=== PATIENT | female | born 1965 | race Caucasian/White ===

== ENCOUNTER → 2016-06-04 | Outpatient (CLI) | payer SELFPAY ==
[~2016-06-04] MED LIST: HYDR-3534 PO; LEVO.1 PO; ZANA4CAP PO
--- NOTE | 2016-06-04 17:06 | RADRPT ---
EXAM DATE/TIME: 06/04/2016 16:27 [place] COMPARISON: No previous studies available for comparison. INDICATIONS : Rotator cuff tear. Right shoulder pain after fall about one month ago. MEDICAL HISTORY : None. SURGICAL HISTORY : Rotator cuff, left. Breast implants. ENCOUNTER: Initial ACUITY: 1 month PAIN SCORE: 3/10 LOCATION: Right shoulder. TECHNIQUE: Multiplanar, multisequence MRI examination was performed without contrast. FINDINGS: ROTATOR CUFF: The anterior supraspinatus tendon is torn . Distally it occupies at least 80% of the cross-sectional AP dimension of the supraspinatus tendon. The infraspinatus, subscapularis, and teres minor tendons are intact. LABRUM: Labrum is within normal limits. MARROW/CARTILAGE: There is a bony edema and impingement changes on the greater tuberosity. Glenohumeral joint articula r cartilage is within normal limits. OTHER: Acromioclavicular joint is within normal limits. Proximal biceps tendon is intact. CONCLUSION: Partial tear the anterior three quarters of the supraspinatus tendon with retraction of the tendon to the level of the glenohumeral joint. Muscle fibers are preserved. Some impingement change of the gre ater tuberosity Ángel Gallegos MD on June 04, 2016 at 17:03 Board Certified Radiologist. This report was verified electronically.
== END ==
LOC: HRAD 14:25
PROVIDERS: ATTEND Orthopaedic Surgery Sports Medicine
DX: M25.511 Pain in right shoulder (principal)
CPT/HCPCS: 73221

== ENCOUNTER → 2016-07-08 | Outpatient (CLI) | payer OTHER ==
[~2016-07-08] VITALS: Ht 170.2 cm; Wt 80.4 kg
[~2016-07-08] MED LIST changes: +INSULIN HUMAN REGULAR 1,000 UNITS/10 ML VIAL SQ PRN; +LACTATED RINGER'S 1000 ML IV SCH; +METOPROLOL TARTRATE 25 MG TAB PO PRN; +PROPOFOL 200 MG/20 ML AMP IV ONE; +SODIUM CHLORID 0.9% 500 ML IV SCH
[2016-07-08 09:17] VITALS: BP 143/79; PULSE 74; RESP 20; TEMP 98.4; O2SAT 100
[2016-07-08 11:27] VITALS: TEMP 97
[2016-07-08 11:50] VITALS: BP 137/92; PULSE 72; RESP 16; O2SAT 98
--- NOTE | 2016-07-08 13:06 | MR ---
cc: YANELIS BOB MD, SUNIL P. M.D. DATE: 07/08/2016 DATE OF : 1965 TYPE OF PROCEDURE Total colonoscopy with ileoscopy and biopsy. INDICATION FOR PROCEDURE The patient is a pleasant 51-year-old white female who comes today for screening colonoscopy. She also has a family history of colon polyps in her father. This procedure is being done to check for colon cancer and colon polyps. ENDOSCOPIST Sachin Nobles MD [facility] GI personnel. ANESTHESIA Diprivan per FAMILY PROGRAM SPECIALIST. INSTRUMENT/SCOPE Pentax video Olympus adult colonoscope. TYPE OF PREP Split MoviPrep. The preparation was fair. Copious lavage was used to break up liquid and solid stool. PHYSICAL EXAMINATION VITAL SIGNS: Stable. She is afebrile. LUNGS: Clear. HEART: Regular rate and rhythm. No murmurs. ABDOMEN: Soft, nontender. NEUROLOGIC: She is alert and oriented x3. SKIN: Warm and dry. EXTENT OF EXAM Terminal ileum. CONTINUOUS MONITORING The patient had routine blood pressure monitoring, pulse oximeter/oxygen, and cardiac monitoring were continued throughout the procedure. INFORMED CONSENT Obtained with full verbal understanding, the indication for procedure (see above), risks and complications (bleeding, perforation, infection, arrhythmias, small possibility of , etc.), benefits (we can potentially see the entire colon, remove lesions, cauterized lesions, biopsy lesions, or inject lesions, etc.), alternatives (BE, flex-sig, surgery, etc.), limitations (we may not see everything secondary to prep and anatomy in addition, the patient understands the concept of a flat adenoma which is usually not seen on a colonoscopy. In other words, the patient understands that most colon cancers occur from colon polyps, however, a handful of colon cancers occur without an apparent colon polyp and occur from a flat adenoma. So, you can have a normal colonoscopy and develop a colon cancer years after the index normal colonoscopy. The patient also understands the inherent miss rate for polyps and a malignancy). The patient also understands the fact that I may not be able to complete the exam in its entirety. All questions were answered and all parties agreed to the procedure. DESCRIPTION OF PROCEDURE With the patient in the left lateral decubitus position a rectal exam was done and no significant pathology was felt. The above-mentioned colonoscope was inserted and passed through a redundant spastic sigmoid colon, descending colon, splenic flexure, transverse colon, into the hepatic flexure. Here there was paradoxical motion noted but I was able to push through this area to the ascending colon into the cecum with relative ease. The terminal ileum was visualized and unremarkable. The preparation was fair. There was some liquid and solid stool seen throughout which is washed and lavaged. Within the limitations there were no masses, AVMs, diverticula, or any signs of any abnormalities. In the splenic flexure there was a 3 mm sessile polyp. It was cold biopsied and removed. Retroflexion was accomplished in the rectum, internal hemorrhoids were noted, small and not bleeding. The withdrawal time was 17 minutes. SPECIMENS Splenic flexure polyp. TOLERANCE OF PROCEDURE The scope was totally withdrawn and the patient tolerated the procedure quite well. No immediate complications. Lungs, heart, abdomen, vital signs and the rest of the physical exam was unchanged post procedure. The patient was transported in a stable state to the recovery area. IMPRESSION 1. Splenic flexure polyp biopsy removed. 2. Internal hemorrhoids. 3. Family history of colon polyps - her father. 4. Await pathology. RECOMMENDATIONS 1. Return visit in 1-2 months. 2. Patient to call the office for biopsy results in 7-10 business days. 3. Post-procedure protocol to be followed. 4. The patient will be discharged when post-anesthesia protocol has been met. 5. She will need repeat colonoscopy again in three years. 6. Yearly hemoccult testing by her primary care doctor. 7. Resume home medications and diet. Sachin Nobles MD SP/BT /11:33 AM /12:34 PM
--- NOTE | 2016-07-08 15:11 | EKG ---
Date Performed: 07/08/2016 Time Performed: 09:38:54 PTAGE: 51 years EKG: Sinus rhythm WITH SHORT TX INTERVAL BORDERLINE ECG Compared to prior tracing no significant change PREVIOUS TRACING : 12/27/2000 09.42 DOCTOR: Cj Meza Interpretating Date/Time 07/08/2016 15:09:25
== END ==
LOC: HEND 08:28
PROVIDERS: ATTEND Internal Medicine Gastroenterology
DX: Z12.11 Encounter for screening for malignant neoplasm of colon (principal); Z80.0 Family history of malignant neoplasm of digestive organs; D12.3 Benign neoplasm of transverse colon; K64.8 Other hemorrhoids; R94.31 Abnormal electrocardiogram [ECG] [EKG]
CPT/HCPCS: 88305; 93005

== ENCOUNTER → 2016-08-20 | Day surgery (SDC) | payer OTHER ==
[~2016-08-20] MED LIST changes: +BACITRACIN IM FOR SOLN 50,000 UNIT VIAL ONE; +BUPIVACAINE HCL PF 0.75% 30 ML VIAL ONE; +BUPIVACAINE/EPINEPHRINE 0.25% PF 10 ML VIAL ONE; -INSULIN HUMAN REGULAR 1,000 UNITS/10 ML VIAL SQ PRN; +KETOROLAC TROMETHAMINE 30 MG/ML (IVP) VIAL IV PUSH ONE; +LACTATED RINGER'S 1000 ML INJ 1,000 ML ONE; -LACTATED RINGER'S 1000 ML IV SCH; +LIDOCAINE 1.5%/EPINEPHrine 1:200,000 PF SOLN 30 ML AMP ONE; -METOPROLOL TARTRATE 25 MG TAB PO PRN; +MIDAZOLAM HCL 5 MG/ML VIAL (1 ML) ONE; +ONDANSETRON HCL 4 MG/2 ML VIAL IV PUSH ONE; -SODIUM CHLORID 0.9% 500 ML IV SCH; +SODIUM CHLORIDE 0.9% INJ 10 ML ONE; +ceFAZolin INJ 1,000 MG VIAL ONE; +oxyCODONE/ACETAMINOPHEN 5 MG/325 MG TAB ONE
--- NOTE | 2016-08-20 12:01 | TN ---
cc: PEDRO GOVEA M.D. DATE OF SURGERY: 08/20/2016 PREOPERATIVE DIAGNOSIS Right shoulder rotator cuff tear. Right shoulder AC joint arthritis. POSTOPERATIVE DIAGNOSIS Right shoulder large three tendon retracted rotator cuff tear. Right shoulder AC joint arthritis with subclavicular impingement. Right shoulder intra-articular biceps tendon rupture. PROCEDURE PERFORMED Open right shoulder rotator cuff repair including acromioplasty. Right shoulder partial distal clavicle excision; 1 cm. Right shoulder excision of ruptured biceps tendon. SURGEON Jeferson ANESTHESIA: Anesthesia was general via laryngeal mask augmented by interscalene block and local infiltration. ESTIMATED BLOOD LOSS: Blood loss was minimal. FLUIDS: Fluid replacement was 800 cc of crystalloid. DRAINS: No drains were utilized. COMPLICATIONS: There were no intraoperative complications. IMPLANTS: Implants consisted of two Arthrex 5.5 mm bio corkscrew anchors with four #2 fiber wires on each of them and then two Arthrex 4.5 mm bio push locks and then one single #2 FiberWire suture. INDICATIONS FOR PROCEDURE Mrs. Jacobs is a 51-year-old woman who has a known right shoulder rotator cuff tear that has been treated conservatively for extended period of time and the is progressive becoming more and more painful. She has had multiple injections by other physicians with short-term relief and she is ready at this point in time to move forward with surgical management. She has a history of a previous left shoulder rotator cuff repair done [address] Martinez and is familiar with the procedure. Due to reasonable motion, she has been offered ongoing conservative management but based on her persistent pain and functional limitations she is quite eager to proceed. Preoperatively she had regained the majority of her range of motion but was having chronic intolerable, loss of motion pain and strength issues. DESCRIPTION OF PROCEDURE After the patient was identified in the holding area she correctly marked her right shoulder and I initialed it as well. She had been given an interscalene block by Dr. Ramos in the holding area and was also given 1 gram of intravenous Ancef. She was then taken back into the operating suite where she was placed under general laryngeal mask anesthetic and then was placed into the beach-chair position. Care was taken to pad all bony prominences at this point in time her right shoulder was prepped with alcohol and hibiclens and draped free in the normal standard fashion including the use of an impervious stockinette from the hand all the way up to the mid humerus level. A brief time out was held confirming the correct site and procedure. All were in agreement and the case was begun. At this time the shoulder was then taken through a range of motion. It was full without any obvious significant crepitus or instability. At this time a 5-cm incision was made directly over the acromioclavicular joint subcutaneous tissues divided and hemostasis was achieved with electrocautery. The AC joint was very palpable due to bony prominences and I went and sub periosteally dissected medially and laterally raising full thickness periosteal flaps over the to the anterolateral edge of the acromion and over to approximately 1.5 cm of the clavicle. There was clear evidence of quite large osteophytes at the AC joint with complete loss of the joint space. I went ahead and carried the dissection further anteriorly and the deltoid was spread in line with its fibers over the anterolateral edge acromion for approximately 1 cm as soon as I got to the deep deltoid fascia a large navarro of joint fluid came through consistent with a full-thickness tear. I went ahead and began to perform a subacromial bursectomy and immediately noted a larger full-thickness rotator cuff tear that had been appreciated on the MRI from May 2016. There was what appeared to be a full-thickness retracted tear involving the upper half of the subscapularis, all of the supraspinatus and all of the infraspinatus. This was clearly more extensive then her MRI findings. I still felt as though the repair was feasible based upon the quality of the tissue and good bone that was present. A generous acromioplasty was performed with the oscillating saw and this thoroughly decompressed the subacromial space. The distal 1 cm of clavicle was also excised to eliminate the AC joint arthritis but also to eliminate the large osteophyte impinging on the subclavicular space subacromial bursectomy was now performed and was able to mobilize the rotator cuff tear quite well. I felt that it would was truly a repairable lesion. It was clearly worse in the MRI had suggested but the tissue flaps were fairly thick and fairly mobile as I was explored the glenohumeral joint itself. I release adhesions between the capsule and the cuff and began to apply tension to the cuff to stretch it out. There was a complete biceps tendon rupture with approximately 1.5 cm of the tendon remaining in the joint and there was no evidence of any distal stump appreciated anywhere as I began to palpate down the upper anterior portion of the arm. I did not feel any obvious prominence that would be consistent with the distal stump and clinically she did not show evidence of a large rupture. I went ahead and excise the large stump of biceps tendon off of the supraglenoid tubercle taking care not to produce a slap lesion as a result of this there was no evidence of any definite labral tear or any other evidence of labral instability. The glenohumeral joint showed relatively minimal evidence of any degenerative arthritis as well. I thoroughly irrigated out the glenohumeral joint at this point in time and then went ahead and made a trough at the greater tuberosity in order to implant two 5.5 mm biocorkscrew anchors for cuff repair. I went ahead and got a bone trough down to bleeding bone as a result of the dissection. At this time I went ahead and passed all of the #2 FiberWire sutures through the cuff itself mobilizing it well getting good purchase, and was able to perform a medial row repair getting good reapproximation of the majority of the tendon down to the footprint on the tuberosity. Once this was performed I went ahead and did a [id number]-li-rwre reinforcement of the repair and then I went ahead and did a lateral row repair with two Arthrex 4.5 mm bio push locks incorporating four sutures in each of them in order to be certain that the kzst-vw-izum sutures never loosen, and also to further smooth the footprint of the repair. At this time the rotator cuff moved quite well throughout a range of motion without any significant impingement. The subacromial space was well decompressed and the distal clavicle was not unstable. I thoroughly irrigated the subacromial space one further time and the deltoid was now repaired with an additional #2 FiberWire suture getting good reapproximation back down to the edge of the acromion and the subcutaneous tissue was closed with 2-0 Vicryl inverted subcutaneous stitches and skin was then closed with paco. At this time 20 cc of 0.25% Marcaine with epinephrine was then injected subcutaneously as well as in the subacromial space for postop pain relief. The wound was then closed with 2-0 Vicryl inverted subcutaneous stitches and the skin was closed with paco. Xeroform, 4x4, ABD's and foam tape were applied as was a regular sling. She was awoken from anesthesia and taken to recovery in stable condition. Appropriate postoperative orders have been given. Pedro Govea MD Electronically Signed Pedro Govea MD [facility]/ /10:50 AM /11:08 AM MTDD
== END | disposition home or self-care (01) ==
LOC: ESDC 06:55
PROVIDERS: ATTEND Orthopaedic Surgery Sports Medicine
DX: M75.121 Complete rotator cuff tear or rupture of right shoulder, not specified as traumatic (principal); M19.011 Primary osteoarthritis, right shoulder; S46.211A Strain of muscle, fascia and tendon of other parts of biceps, right arm, initial encounter
CPT/HCPCS: 00450; 01630; 01991; 23120; 23420; 64417; C1713; J0690; J1885; J2250; J2405; J7120

== ENCOUNTER 2016-10-01 21:04 | Emergency (ER) | payer OTHER ==
[~2016-10-01] VITALS: Ht 170.2 cm; Wt 75.0 kg
[~2016-10-01 21:04] MED LIST changes: -BACITRACIN IM FOR SOLN 50,000 UNIT VIAL ONE; -BUPIVACAINE HCL PF 0.75% 30 ML VIAL ONE; -BUPIVACAINE/EPINEPHRINE 0.25% PF 10 ML VIAL ONE; -KETOROLAC TROMETHAMINE 30 MG/ML (IVP) VIAL IV PUSH ONE; -LACTATED RINGER'S 1000 ML INJ 1,000 ML ONE; -LIDOCAINE 1.5%/EPINEPHrine 1:200,000 PF SOLN 30 ML AMP ONE; -MIDAZOLAM HCL 5 MG/ML VIAL (1 ML) ONE; -ONDANSETRON HCL 4 MG/2 ML VIAL IV PUSH ONE; -PROPOFOL 200 MG/20 ML AMP IV ONE; -SODIUM CHLORIDE 0.9% INJ 10 ML ONE; -ceFAZolin INJ 1,000 MG VIAL ONE; -oxyCODONE/ACETAMINOPHEN 5 MG/325 MG TAB ONE
[2016-10-01 21:05] VITALS: BP 198/113; PULSE 87; RESP 18; TEMP 98.6; O2SAT 100
--- NOTE | 2016-10-01 21:46 | PD ---
Physical Exam Date Seen by Provider: October 01, 2016 Time Seen by Provider: 21:44 Narrative 51 yo female here for evaluation of headache. History of migrane headaches. Has been taking meds with no relief. BP has been high as well. Has nausea. Usually gets toradol and phenergan with good relief in the past when it gets this bad. pain is 8/10. Vitals sign stable. Patient awaiting bed placement. Data Data Last Documented VS Vital Signs Date Time Temp Pulse Resp B/P Pulse Ox O2 Delivery O2 Flow Rate FiO2 10/01/16 21:05 98.6 87 18 198/113 100 Room Air [facility] Medical Record Reviewed: Yes Supervised Visit with CARIN: No [place]ries [place] October 01, 2016 21:46
[2016-10-01] MEDS ORDERED: diphenhydrAMINE HCL 50 MG/ML VIAL IVP ONE (23:00)
[2016-10-01] MEDS ORDERED: PROCHLORPERAZINE INJ 10 MG/2 ML VIAL IVP ONE (23:00)
--- NOTE | 2016-10-01 23:11 | PD ---
HPI . Headache Chief Complaint: Headache Time Seen by Provider: 22:58 Travel History International Travel<30 days: No Contact w/Intl Traveler<30days: No Traveled to known affect area: No History of Present Illness HPI Patient presents with a three-day history of a throbbing frontal headache. She states that the pain is exacerbated by sitting up. It has been unrelieved by ifjg-pas-ghripnl analgesics and vxro-knp-rzqgaws allergy medications. Severity is 10/10. It is associated with nausea and dizziness. PFSH Past Medical History Bipolar Disorder: Yes Anxiety: Yes Depression: Yes Cancer: No Cardiovascular Problems: No High Cholesterol: Yes Diabetes: No Diminished Hearing: No Endocrine: Yes Glaucoma: No Headaches: Yes Hiatal Hernia: No Hypertension: Yes Immune Disorder: No Kidney Stones: Yes Musculoskeletal: Yes (torn rotator cuff right arm) Neurologic: No Respiratory: No Immunizations Current: Yes Migraines: Yes Thyroid Disease: Yes Tetanus Vaccination: < 5 Years Influenza Vaccination: No ?: Not LMP: 09/04/16 : 4 Para: 2 Miscarriage: 0 : 2 Ovarian Cysts: Yes (RIGHT) Tubal Ligation: Yes Past Surgical History Body Medical Devices: pins left shoulder, Gynecologic Surgery: Yes (TUBAL LIG.) Thoracic Surgery: Yes (Dec. MAMMOPLASTY) Other Surgery: Yes (BREAST IMPLANTS.) Social History Alcohol Use: No Tobacco Use: No Substance Use: No Allergies-Medications (Allergen,Severity, Reaction): Coded Allergies: Codeine (Verified Allergy, Severe, Nausea/Vomiting, 10/01/16) Sulfa (Verified Allergy, Severe, SOB, TOUNGUE SWELLS, HIVES, 10/01/16) Reported Meds & Prescriptions Reported Meds & Active Scripts Active Lortab (Hydrocodone-Acetaminophen) 7.5-325 Mg Tab 1 Tab PO Q6H PRN Reported Zanaflex (Tizanidine HCl) 4 Mg Cap 4 Mg PO BID Synthroid (Levothyroxine Sodium) 100 Mcg Tab 100 Mcg PO DAILY Review of Systems Except as stated in HPI: all other systems reviewed are Neg General / Constitutional: No: Fever, Chills Eyes: Positive: Blurred Vision HENT: Positive: Headaches Gastrointestinal: Positive: Nausea Neurologic: Positive: Dizziness Physical Exam Narrative GENERAL: Awake and alert and in no acute distress. SKIN: Warm and dry. HEAD: Atraumatic. Normocephalic. Bitemporal tenderness. EYES: Pupils equal and round. Extraocular movements are intact. NECK: Trachea midline. Neck is supple. CARDIOVASCULAR: Regular rate and rhythm. RESPIRATORY: No accessory muscle use. MUSCULOSKELETAL: No obvious deformities. No edema. NEUROLOGICAL: Awake and alert. No obvious cranial nerve deficits. Motor grossly within normal limits. Normal speech. PSYCHIATRIC: Appropriate mood and affect; insight and judgment normal. Data Data Last Documented VS Vital Signs Date Time Temp Pulse Resp B/P Pulse Ox O2 Delivery O2 Flow Rate FiO2 10/01/16 21:46 16 10/01/16 21:05 98.6 87 198/113 100 Room Air Orders Prochlorperazine Inj (Compazine Inj) (10/01/16 23:00) Diphenhydramine Inj (Benadryl Inj) (10/01/16 23:00) Ketorolac Inj (Toradol Inj) (10/01/16 23:15) Diphenhydramine Inj (Benadryl Inj) (10/01/16 23:15) Prochlorperazine Inj (Compazine Inj) (10/01/16 23:15) Ketorolac Inj (Toradol Inj) (10/01/16 23:15) MDM Medical Decision Making Medical Screen Exam Complete: Yes Emergency Medical Condition: Yes Differential Diagnosis Differential diagnosis of headache includes but is not limited to migraine, muscle contraction headache, brain tumor, brain bleed Narrative Course Patient presents with headache. She states that she is normally treated with IM Toradol and IM Phenergan. I have ordered this but I am Phenergan is out of stock. Therefore, she will be treated with IV Compazine/Benadryl and IV Toradol. Headache is resolved and she is ready to go home. Diagnosis Primary Impression: Headache Qualified Code: G44.209 - Acute non intractable tension-type headache Patient Instructions: Acute Headache (DC), General Instructions Disposition: DISCHARGE HOME Condition: Stable Christal Burrell MD October 01, 2016 23:11
[2016-10-01] MEDS ORDERED: KETOROLAC TROMETHAMINE 60 MG/2 ML (IM) VIAL IM ONE (23:15)
[2016-10-01] MEDS ORDERED: diphenhydrAMINE HCL 50 MG/ML VIAL IV PUSH ONE (23:15)
[2016-10-01] MEDS ORDERED: PROCHLORPERAZINE INJ 10 MG/2 ML VIAL IV PUSH ONE (23:15)
[2016-10-01] MEDS ORDERED: KETOROLAC TROMETHAMINE 30 MG/ML (IVP) VIAL IV PUSH ONE (23:15)
== END 2016-10-02 00:07 | disposition home or self-care (01) ==
LOC: NEPD 21:04
DX: G44.209 Tension-type headache, unspecified, not intractable (principal); I10 Essential (primary) hypertension
CPT/HCPCS: 96374; 96375; 99284; J0780; J1200; J1885

== ENCOUNTER 2016-11-02 19:42 | Emergency (ER) | payer OTHER ==
[~2016-11-02] VITALS: Ht 170.2 cm; Wt 80.0 kg
[2016-11-02 19:46] VITALS: BP 126/68; PULSE 72; RESP 16; TEMP 98.6; O2SAT 98
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
[2016-11-02] MEDS ORDERED: PROCHLORPERAZINE INJ 10 MG/2 ML VIAL IM ONE (20:45)
[2016-11-02] MEDS ORDERED: KETOROLAC TROMETHAMINE 60 MG/2 ML (IM) VIAL IM ONE (20:45)
== END 2016-11-02 21:20 | disposition home or self-care (01) ==
LOC: NEPD 19:42
DX: S00.93XA Contusion of unspecified part of head, initial encounter (principal); R51 Headache; I10 Essential (primary) hypertension; E03.9 Hypothyroidism, unspecified; E78.00 Pure hypercholesterolemia, unspecified; V49.09XA Driver injured in collision with other motor vehicles in nontraffic accident, initial encounter; Y92.481 Parking lot as the place of occurrence of the external cause; Z86.69 Personal history of other diseases of the nervous system and sense organs; Z87.39 Personal history of other diseases of the musculoskeletal system and connective tissue; Z86.59 Personal history of other mental and behavioral disorders; Z87.448 Personal history of other diseases of urinary system
CPT/HCPCS: 96372; 99284; J0780; J1885

== ENCOUNTER → 2016-12-02 | Outpatient (CLI) | payer OTHER ==
--- NOTE | 2016-12-03 13:55 | EKG ---
Date Performed: 12/02/2016 Time Performed: 14:14:32 PTAGE: 51 years EKG: Sinus rhythm . Since previous tracing, no significant change noted Normal ECG PREVIOUS TRACING : 07/08/2016 09.38 DOCTOR: Vic Cook Interpretating Date/Time 12/03/2016 13:55:16
== END ==
LOC: HCAV 14:07
DX: F90.0 Attention-deficit hyperactivity disorder, predominantly inattentive type (principal)
CPT/HCPCS: 93005

== ENCOUNTER 2017-01-20 01:59 | Inpatient (IN) | payer OTHER ==
[2017-01-20] VITALS (12 sets, daily range): BP systolic 81–169; BP diastolic 45–99; PULSE 65–94; RESP 14–25; TEMP 97.2–98.2; O2SAT 98–100
[~2017-01-20] VITALS: Ht 170.2 cm; Wt 90.0 kg
[2017-01-20] MEDS ORDERED: TRAZ100T6 PO (02:12)
[2017-01-20] MEDS ORDERED: DEXT5TAB2 PO (02:12)
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
[2017-01-20] MEDS ORDERED: MAGNESIUM SULFATE 1 GM PREMIX 100 ML IV ONE (02:45)
[2017-01-20 02:52] LABS: ALT (GPT) 27 U/L (10-53); ANION GAP 8 MEQ/L (5-15); AST (GOT) 19 U/L (15-37); BICARBONATE 25.4 MEQ/L (21.0-32.0); BLOOD UREA NITROGEN 17 MG/DL (7-18); CHLORIDE 105 MEQ/L (98-107); GLOMERULAR FILTRATION RATE 36 ML/MIN (>89); POTASSIUM 4.7 MEQ/L (3.5-5.1); SODIUM (NA) 138 MEQ/L (136-145)
[2017-01-20 02:53] LABS: BASOPHIL % 0.3 % (0.0-2.0); EOSINOPHIL # 0.1 TH/MM3 (0-0.4); EOSINOPHIL % 0.8 % (0.0-4.0); HEMATOCRIT 39.5 % (35.0-46.0); HEMO FLAGS DIFF FINAL; LYMPH % 11.6 % (9.0-44.0); LYMPHOCYTE # 1.3 TH/MM3 (1.0-4.8); MEAN CELL VOLUME 86.3 FL (80.0-100.0); MEAN CORPUSCULAR HEMOGLOBIN 28.7 PG (27.0-34.0); MEAN CORPUSCULAR HGB CONC 33.3 % (32.0-36.0); MONO % 6.5 % (0.0-8.0); NEUT % 80.8 % (16.0-70.0); PLATELET COUNT 355 TH/MM3 (150-450); RED BLOOD COUNT 4.58 MIL/MM3 (4.00-5.30); RED CELL DISTRIBUTION WIDTH 14.1 % (11.6-17.2); WHITE BLOOD COUNT 11.2 TH/MM3 (4.0-11.0)
[2017-01-20 02:55] LABS: ACETAMINOPHEN LESS THAN 2.0 MCG/ML (10.0-30.0); ALKALINE PHOSPHATASE 110 U/L (45-117); TOTAL BILIRUBIN ADULT 0.7 MG/DL (0.2-1.0)
[2017-01-20 02:59] LABS: ALCOHOL LESS THAN 3 MG/DL (0-5)
[2017-01-20] MEDS ORDERED: SODIUM CHLOR 0.9% 1000 ML INJ 1,000 ML IV ONE ×4 (05:00→06:45)
--- NOTE | 2017-01-20 05:58 | RADRPT ---
EXAM DATE/TIME: 01/20/2017 05:18 [facility] COMPARISON: No previous studies available for comparison. INDICATIONS : Altered mental status. Possible overdose. RADIATION DOSE: 33.25 CTDIvol (mGy) MEDICAL HISTORY : Renal calculi. SURGICAL HISTORY : Tubal ligation. ENCOUNTER: Initial ACUITY: 1 day PAIN SCALE: Non-responsive LOCATION: cranial TECHNIQUE: Multiple contiguous axial images were obtained of the head. Using automated exposure control and adj ustment of the mA and/or kV according to patient size, radiation dose was kept as low as reasonably a chievable to obtain optimal diagnostic quality images. DICOM format image data is available electro nically for review and comparison. FINDINGS: CEREBRUM: The ventricles are normal for age. No evidence of midline shift, mass lesion, hemorrhage or acute in farction. No extra-axial fluid collections are seen. POSTERIOR FOSSA: The cerebellum and brainstem are intact. The 4th ventricle is midline. The cerebellopontine angle i s unremarkable. EXTRACRANIAL: The visualized portion of the orbits is intact. SKULL: The calvaria is intact. No evidence of skull fracture. CONCLUSION: Normal examination. Josh Harper Jr., MD on January 20, 2017 at 5:55 Board Certified Radiologist. This report was verified electronically.
--- NOTE | 2017-01-20 07:58 | RADRPT ---
EXAM DATE/TIME: 01/20/2017 07:42 [facility] COMPARISON: CHEST SINGLE AP, December 29, 2014, 8:09. INDICATIONS : Congestion, nausea, vomiting, hypotensive. MEDICAL HISTORY : None. SURGICAL HISTORY : Breast augmention. ENCOUNTER: Initial ACUITY: 2 days PAIN SCORE: 0/10 LOCATION: Bilateral chest FINDINGS: A single view of the chest demonstrates the lungs to be symmetrically aerated without evidence of mas s, infiltrate or effusion. The cardiomediastinal contours are unremarkable. Osseous structures are intact. CONCLUSION: No acute disease. No significant change has occurred. Kodak Cardona MD on January 20, 2017 at 7:56 Board Certified Radiologist. This report was verified electronically.
[2017-01-20 08:00] LABS: BACTERIA, URINE MANY /hpf; BLOOD, URINE NEG (NEG); CALCIUM OXALATE CRYSTALS,URINE RARE /hpf; GLUCOSE,URINE NEG (NEG); HYALINE CAST, URINE 88 /lpf (RARE); KETONE, URINE NEG (NEG); MUCUS URINE FEW /lpf (OCC); NITRITE,URINE NEG (NEG); SQUAMOUS EPITHELIAL CELL URINE 34 /hpf (0-5); URINE COLOR YELLOW (YELLW/STRAW)
[2017-01-20 08:05] LABS: COMMENT (UR) CULTURE INDICATED; CULTURE IF INDICATED CULTURE INDICATED
[2017-01-20] MEDS ORDERED: DEXTROSE 50% IN WATER 50 ML VIAL(D50) IV PRN (10:15)
[2017-01-20] MEDS ORDERED: MAGNESIUM HYDROXIDE SUSP 30 ML CUP PO PRN (10:15)
[2017-01-20] MEDS ORDERED: SENNOSIDES 8.6 MG TAB PO PRN (10:15)
[2017-01-20] MEDS ORDERED: CHLORHEXIDINE GLUCONATE 2 % 1 PACK (2 CLOTHS) TOP PRN (10:15)
[2017-01-20] MEDS ORDERED: DEXT 5%-NACL 0.9% 1000 ML INJ 1,000 ML IV SCH (10:15)
[2017-01-20] MEDS ORDERED: BISACODYL 10 MG SUPP RECTAL PRN (10:15)
[2017-01-20] MEDS ORDERED: GLUCAGON 1 MG/ML VIAL OTHER PRN (10:15)
[2017-01-20] MEDS ORDERED: LACTULOSE SYRUP 20 GM/30 ML CUP PO PRN (10:15)
[2017-01-20] MEDS ORDERED: RESP: ALBUTEROL 2.5 MG/IPRATROPIUM 0.5 MG NEB (PRN) INH (10:15)
[2017-01-20] MEDS ORDERED: MISCELLANEOUS NURSING INFORMATION XX SCH (10:15)
[2017-01-20] MEDS: INSULIN NovoLIN REGULAR SUPPLEMENTAL SCALE SQ SCH ×3 (11:00→22:50)
--- NOTE | 2017-01-20 11:53 | EKG ---
Date Performed: 01/20/2017 Time Performed: 06:48:19 PTAGE: 51 years EKG: Sinus rhythm NONSPECIFIC ST ABNORMALITY ABNORMAL ECG PREVIOUS TRACING : 01/20/2017 02.13 No significant change from previous tracing noted DOCTOR: Jagdish Forbes Interpretating Date/Time 01/20/2017 11:52:48
[2017-01-20] MEDS: HEPARIN SODIUM - SQ 10,000 UNITS/ML VIAL SQ SCH ×2 (12:38→22:31)
--- NOTE | 2017-01-20 13:24 | MH ---
cc: REINA CORONA DATE OF ADMISSION: 01/20/2017 DATE OF : 1965 HISTORY OF PRESENT ILLNESS The patient is a 51-year-old female with past medical history of hypothyroidism and kidney stones. She presented to [facility] ED via EMS for possible drug overdose. The patient states that she was depressed as her boyfriend just broke up with her and initially she reported that she had a few drinks last night. In addition she took trazodone and few tablets of Lortab. She denies any suicidal or homicidal ideation. On arrival to the ER she was hypotensive with a systolic blood pressure in the 80s and she received 3 liters of crystalloids with improvements of her blood pressure, currently at 154/86. On further history she reports intractable nausea and vomiting. However, she denies any abdominal pain, diarrhea or constipation. Also she denies any fever, chills or any constitutional symptoms. When I asked her specifically about her possible drug overdose she denies taking any trazodone and she stated that she took two extra tablets of Lortab and normally she takes 4 tablets a day since she had rotator cuff surgery in August. She denies any ETOH use and her last drink was in 2009. Her urine toxicology screen was positive for opiates and benzodiazepines. Laboratory data significant for mild acute kidney injury with creatinine level of 1.52. Her lactic acid level measured at 1.8. Chest x-ray in the ER showed no acute disease. In addition, she had a CT scan of the brain which showed no acute intracranial process. The patient is awake, alert on room air oxygen with saturation of 100%. PAST MEDICAL HISTORY Past medical history significant for: 1. Anxiety/depression. 2. Hypothyroidism. PAST SURGICAL HISTORY 1. Right shoulder rotator cuff surgery in August. 2. She had pins in left shoulder. 3. Previous tubal ligation. SOCIAL HISTORY The patient denies any alcohol use. Her last drink was in 2009. She is a nonsmoker. ALLERGIES SULFA AND CODEINE. FAMILY HISTORY Mother of COPD. Father with leukemia. Diabetes mellitus runs in the family. MEDICATIONS Medications at home include: 1. Lortab. 2. Trazodone. 3. Synthroid. REVIEW OF SYSTEMS As per HPI. The rest of the review of systems unremarkable. PHYSICAL EXAMINATION GENERAL: A 51-year-old female lying in bed, in no acute respiratory distress. VITAL SIGNS: Afebrile, pulse of 84, blood pressure 154/86 currently, saturation 100% on room air. HEENT: Atraumatic, normocephalic. Pupils equal, round and reactive to light and accommodation. Extraocular muscles intact. Conjunctivae pink. Nonicteric sclerae. Oral mucosa within normal. NECK: Supple. No JVD, adenopathy, thyromegaly. Trachea in the midline. CARDIOVASCULAR: Regular rate and rhythm. Normal S1-S2. No murmurs, rubs or gallops noted. PULMONARY: Bilateral equal air entry, no rales or wheezing. ABDOMEN: Soft, nontender, no distension. Positive bowel sounds. EXTREMITIES: No cyanosis, clubbing or edema. No focal sensory deficit. LABORATORY DATA Sodium 138, potassium 4.7, chloride 105, CO2 25, BUN 17, creatinine 1.52, glucose 110 and lactic acid 1.8, cortisol level 10.7, albumin 3.7. WBC 11.2, hemoglobin 13.1, hematocrit 39, platelet count 355. Urine drug screen positive for opiates and benzodiazepines. Urinalysis showed many bacteria, rare calcium oxalate crystals. RADIOGRAPHIC STUDIES CT scan of the brain showed no acute intracranial process. Chest x-ray showed no acute disease. IMPRESSION 1. Possible drug overdose. 2. Hypotension, resolved. 3. Mild acute kidney injury. 4. Intractable nausea, vomiting. 5. Dehydration. 6. Urinary tract infection. 7. Hypothyroidism. 8. Anxiety/depression. 9. History of renal stones. RECOMMENDATIONS 1. Monitor neuro status closely and avoid any sedatives. She is awake and oriented x3. Her urine drug screen is positive for opiates and benzodiazepines and CT brain in the ED negative for acute process. 2. Oxygen p.r.n. to maintain sats above 92%. 3. Bronchodilators on a p.r.n. basis. 4. Monitor heart rate and blood pressure closely and maintain MAP greater than 65 mmHg. The patient received 3 liters of crystalloids in the ED with improvements in her blood pressure. Lactic acid level measured 1.8. 5. Monitor renal function, I&O's and electrolyte replacement as needed. Continue with IV hydration. Will place on D5 NS at 125 mL an hour. Repeat BMP. 6. Start p.o. heart healthy diet. 7. Place on Rocephin 1 gram daily for UTI. Monitor for signs of infections which include fever and WBC. Follow up on blood cultures and urine culture from the ED. Chest x-ray in the ER negative for acute disease. 8. Monitor CBC. 9. Sliding scale insulin with Accu-Cheks q. 6-hours if needed for glycemic control. Check a baseline TSH level given history of hypothyroidism. 10. Will consult psyche for underlying history of depression and possible drug overdose. 11. No indication for GI prophylaxis. DVT prophylaxis with SCDs and heparin subcu. 12. The patient appears hemodynamically stable. Will transfer service to [facility] service on 01/21 if no active issues overnight. MD NATANAEL Markham/CARY /12:48 PM /1:02 PM
[2017-01-20] MEDS: cefTRIAXone INJ 1,000 MG in SODIUM CHLORIDE 0.9% INJ 100 ML IV SCH (14:00)
--- NOTE | 2017-01-20 14:19 | EKG ---
Date Performed: 01/20/2017 Time Performed: 02:13:33 PTAGE: 51 years EKG: Sinus rhythm POSSIBLE PROLONGED QT INTERVAL ABNORMAL ECG PREVIOUS TRACING : 12/02/2016 14.14 No significant change from previous tracing noted. DOCTOR: Jagdish Forbes Interpretating Date/Time 01/20/2017 14:17:56
[2017-01-20 14:49] LABS: AUTOMATED NEUTROPHIL # 9.9 TH/MM3 (1.8-7.7); BASOPHIL % 0.3 % (0.0-2.0); EOSINOPHIL # 0.1 TH/MM3 (0-0.4); EOSINOPHIL % 0.6 % (0.0-4.0); HEMATOCRIT 35.8 % (35.0-46.0); HEMO FLAGS DIFF FINAL; LYMPH % 13.3 % (9.0-44.0); LYMPHOCYTE # 1.6 TH/MM3 (1.0-4.8); MEAN CELL VOLUME 87.1 FL (80.0-100.0); MEAN CORPUSCULAR HEMOGLOBIN 28.1 PG (27.0-34.0); MEAN CORPUSCULAR HGB CONC 32.3 % (32.0-36.0); MONO % 5.3 % (0.0-8.0); NEUT % 80.5 % (16.0-70.0); PLATELET COUNT 276 TH/MM3 (150-450); RED BLOOD COUNT 4.11 MIL/MM3 (4.00-5.30); RED CELL DISTRIBUTION WIDTH 14.3 % (11.6-17.2); WHITE BLOOD COUNT 12.3 TH/MM3 (4.0-11.0)
[2017-01-20 15:02] LABS: BICARBONATE 24.3 MEQ/L (21.0-32.0); POTASSIUM 4.2 MEQ/L (3.5-5.1)
[2017-01-20] MEDS ORDERED: ACETAMINOPHEN/HYDROcodone 325 MG/5 MG TAB PO ONE (16:00)
[2017-01-20] MEDS ORDERED: hydrALAZINE HCL 20 MG/ML VIAL IV PUSH PRN (16:15)
[2017-01-20] MEDS: DOCUSATE SODIUM 50 MG/SENNA 8.6 MG TAB PO SCH (21:00)
[2017-01-21] VITALS (12 sets, daily range): BP systolic 126–165; BP diastolic 71–101; PULSE 81–112; RESP 16–23; TEMP 98–98.4; O2SAT 97–100
[2017-01-21] MEDS: CHLORHEXIDINE GLUCONATE 2 % 1 PACK (2 CLOTHS) TOP SCH ×2 (03:29→22:00)
[2017-01-21] MEDS: INSULIN NovoLIN REGULAR SUPPLEMENTAL SCALE SQ SCH ×4 (05:00→23:00)
[2017-01-21] MEDS ORDERED: LORazepam 2 MG/ML VIAL IV SCH (05:40)
[2017-01-21 05:44] LABS: AUTOMATED NEUTROPHIL # 7.4 TH/MM3 (1.8-7.7); BASOPHIL % 0.3 % (0.0-2.0); EOSINOPHIL % 0.3 % (0.0-4.0); HEMATOCRIT 34.8 % (35.0-46.0); HEMO FLAGS DIFF FINAL; LYMPH % 15.6 % (9.0-44.0); LYMPHOCYTE # 1.5 TH/MM3 (1.0-4.8); MEAN CELL VOLUME 85.6 FL (80.0-100.0); MEAN CORPUSCULAR HEMOGLOBIN 28.2 PG (27.0-34.0); MEAN CORPUSCULAR HGB CONC 32.9 % (32.0-36.0); MONO % 6.4 % (0.0-8.0); NEUT % 77.4 % (16.0-70.0); PLATELET COUNT 275 TH/MM3 (150-450); RED BLOOD COUNT 4.07 MIL/MM3 (4.00-5.30); RED CELL DISTRIBUTION WIDTH 13.8 % (11.6-17.2); WHITE BLOOD COUNT 9.6 TH/MM3 (4.0-11.0)
[2017-01-21 06:05] LABS: ANION GAP 8 MEQ/L (5-15); AST (GOT) 18 U/L (15-37); BICARBONATE 23.2 MEQ/L (21.0-32.0); BLOOD UREA NITROGEN 8 MG/DL (7-18); CHLORIDE 111 MEQ/L (98-107); GLOMERULAR FILTRATION RATE 100 ML/MIN (>89); POTASSIUM 3.6 MEQ/L (3.5-5.1); SODIUM (NA) 142 MEQ/L (136-145)
[2017-01-21 06:08] LABS: ALKALINE PHOSPHATASE 95 U/L (45-117); ALT (GPT) 25 U/L (10-53); TOTAL BILIRUBIN ADULT 0.7 MG/DL (0.2-1.0)
[2017-01-21] MEDS ORDERED: ALPRAZolam 0.5 MG TAB PO PRN (08:00)
--- NOTE | 2017-01-21 08:17 | HHI.PR ---
Subjective Remarks somewhat restless and anxious. denies chest pain, sob. noted that she was tachycardic. d/w the RN. Objective Vitals Vital Signs Date Time Temp Pulse Resp B/P (MAP) Pulse Ox O2 Delivery O2 Flow Rate FiO2 01/21/17 06:00 98 01/21/17 04:00 98.3 94 20 154/101 (118) 98 01/21/17 04:00 92 01/21/17 02:00 112 01/21/17 00:00 98.0 96 18 165/90 (115) 99 01/21/17 00:00 84 01/20/17 22:00 83 01/20/17 20:00 78 01/20/17 20:00 98.1 78 17 169/92 (117) 99 01/20/17 18:00 94 01/20/17 16:00 94 01/20/17 16:00 98.2 94 25 159/99 (119) 98 01/20/17 14:00 87 01/20/17 12:00 79 01/20/17 12:00 98.0 79 19 154/86 (108) 100 01/20/17 11:00 77 18 121/82 (95) 99 01/20/17 08:43 97.7 76 18 111/57 (75) 99 Room Air I/O 01/20/17 01/20/17 01/20/17 01/21/17 01/21/17 01/21/17 07:00 15:00 23:00 07:00 15:00 23:00 Intake Total 1100 ml 500 ml 650 ml Output Total 1000 ml Balance 1100 ml -500 ml 650 ml Intake Oral 500 ml 650 ml IV Total 1100 ml Output Urine Total 1000 ml # Voids 8 # Bowel Movements 1 1 Result Diagram: 01/21/17 0423 01/21/17 0434 Imaging Last Impressions Chest X-Ray 01/20/17 0643 Signed Impressions: Service Date/Time: Friday, January 20, 2017 07:42 - CONCLUSION: No acute disease. No significant change has occurred. Kodak Cardona MD Head CT 01/20/17 0504 Signed Impressions: Service Date/Time: Friday, January 20, 2017 05:18 - CONCLUSION: Normal examination. Josh Harper Jr., MD Objective Remarks GENERAL: This is a well-nourished, well-developed patient, in no apparent distress. CARDIOVASCULAR: tachycardic without murmurs, gallops, or rubs. RESPIRATORY: Clear to auscultation. Breath sounds equal bilaterally. No wheezes , rales, or rhonchi. GASTROINTESTINAL: Abdomen soft, non-tender, nondistended. Normal, active bowel sounds MUSCULOSKELETAL: Extremities without clubbing, cyanosis, or edema. NEURO: Alert & Oriented x4 to person, place, time, situation. Moves all ext x4 Medications and IVs Current Medications Magnesium Sulfate/ Dextrose 100 ml @ 100 mls/hr ONCE ONCE IV Last administered on 01/20/17 03:30; Start 01/20/17 at 02:45; Stop 01/20/17 at 03:44 ; Status DC Sodium Chloride 1,000 ml @ 999 mls/hr BOLUS ONCE IV Last administered on 01/20 05:07; Start 01/20/17 at 05:00; Stop 01/20/17 at 06:00; Status DC Sodium Chloride 1,000 ml @ 999 mls/hr BOLUS ONCE IV Last administered on 01/20 06:34; Start 01/20/17 at 05:15; Stop 01/20/17 at 06:15; Status DC Sodium Chloride 1,000 ml @ 999 mls/hr BOLUS ONCE IV Last administered on 01/20 06:46; Start 01/20/17 at 06:15; Stop 01/20/17 at 07:15; Status DC Sodium Chloride 1,000 ml @ 999 mls/hr BOLUS ONCE IV ; Start 01/20/17 at 06:45 ; Stop 01/20/17 at 07:45; Status DC Albuterol/ Ipratropium (Duoneb Neb) 1 ampule Q4HR NEB PRN INH WHEEZING; Start 01/20/17 at 10:15 Heparin Sodium (Porcine) (Heparin Inj) 5,000 units Q12H SQ Last administered on 01/20/17 22:31; Start 01/20/17 at 11:00 Miscellaneous Information 1 Q361D XX ; Start 01/20/17 at 10:15 Chlorhexidine Gluconate (Chlorhexidine 2% Cloth) 3 pack Taper DAILY@04 TOP Last administered on 01/21/17 03:29; Start 01/21/17 at 04:00; Stop 01/17/18 at 03:59 Chlorhexidine Gluconate (Chlorhexidine 2% Cloth) 3 pack UNSCH PRN TOP HYGIENIC CARE; Start 01/20/17 at 10:15 Senna/Docusate Sodium (Elissa-Colace) 1 tab BID PO ; Start 01/20/17 at 21:00 Magnesium Hydroxide (Milk Of Magnesia Liq) 30 ml Q12H PRN PO MILD - MODERATE CONSTIPATION; Start 01/20/17 at 10:15 Sennosides (Senokot) 17.2 mg Q12H PRN PO MODERATE - SEVERE CONSTIPATION; Start 01/20/17 at 10:15 Bisacodyl (Dulcolax Supp) 10 mg DAILY PRN RECTAL SEVERE CONSITIPATION; Start at 10:15 Lactulose (Lactulose Liq) 30 ml DAILY PRN PO SEVERE CONSITIPATION; Start at 10:15 Dextrose/Sodium Chloride 1,000 ml @ 75 mls/hr [id number] IV ; Start 01/20/17 at 10 :15 Dextrose (D50w (Vial) Inj) 50 ml UNSCH PRN IV HYPOGLYCEMIA-SEE COMMENTS; Start 01/20/17 at 10:15 Glucagon (Glucagon Inj) 1 mg UNSCH PRN OTHER HYPOGLYCEMIA-SEE COMMENTS; Start 01/20/17 at 10:15 Insulin Human Regular (NovoLIN R SUPPLEMENTAL SCALE) 1 Q6H SQ ; Start 01/20/17 at 11:00 Ceftriaxone Sodium 1000 mg/ Sodium Chloride 100 ml @ 200 mls/hr Q24H IV Last administered on 01/20/17t 14:00; Start 01/20/17 at 14:00 Acetaminophen/ Hydrocodone Bitart ([place] 5-325 Mg) 1 tab ONCE ONCE PO Last administered on 01/20/17t 16:10; Start 01/20/17 at 16:00; Stop 01/20/17 at 16:01 ; Status DC Hydralazine HCl (Apresoline Inj) 10 mg Q6H PRN IV PUSH SYS BP GREATER THAN 160 MMHG; Start 01/20/17 at 16:15 Fentanyl Citrate (fentaNYL INJ) 100 mcg STK-MED ONCE .ROUTE ; Start 01/21/17 at 02:12; Stop 01/21/17 at 02:59; Status DC Fentanyl Citrate (fentaNYL INJ) 100 mcg ONCE ONCE IV Last administered on 01/21 03:15; Start 01/21/17 at 03:15; Stop 01/21/17 at 03:16; Status DC Fentanyl Citrate (fentaNYL INJ) 50 mcg NOW IV Last administered on 01/21/17 06 :05; Start 01/21/17 at 05:40; Stop 01/21/17 at 06:30; Status DC Lorazepam (Ativan Inj) 1 mg NOW IV Last administered on 01/21/17 06:05; Start 01/21/17 at 05:40; Stop 01/21/17 at 06:30; Status DC A/P Assessment and Plan A/P 1. Possible drug overdose/ possible benzo withdrawal with history of anxiety and depression start back on xanax- monitor the HR and BP closely- psych consult pending. 2. Hypotension, resolved. 3. Intractable nausea, vomiting-improved. 5. Dehydration- received IV fluid. 6. possible UTI ; continue IV Rocephin- follow the cultures. 7. Hypothyroidism- check TSH Lore Acevedo MD Jan 21, 2017 08:17
[2017-01-21] MEDS: DOCUSATE SODIUM 50 MG/SENNA 8.6 MG TAB PO SCH ×2 (08:41→21:00)
[2017-01-21] MEDS: HEPARIN SODIUM - SQ 10,000 UNITS/ML VIAL SQ SCH ×2 (10:37→23:01)
[2017-01-21] MEDS: KETOROLAC TROMETHAMINE 10 MG TAB PO PRN ×3 (11:52→23:02)
--- NOTE | 2017-01-21 12:14 | PD.PSY.CON ---
Provisional Diagnosis Admission Date Jan 20, 2017 at 06:46 Emery I. Adjustment disorder with anxiety, reported ADHD, anxiety and ODD Emery II. Deferred History of Present Illness Service Psychiatry Consult Requested By Reason for Consult Suicidal attempt Primary Care Physician Non-Staff HPI The patient is a 51-year-old woman, domiciled with her boyfriend in [facility], employed, with reported psychiatric history of ADHD, ODD and anxiety, no previous psychiatric hospitalizations, 1 previous suicidal attempt by overdose, establish outpatient care, with past medical history of hypothyroidism , chronic pain and kidney stones. She presented to [facility] ED via EMS for possible drug overdose. The patient states that she was depressed as her boyfriend just broke up with her and initially she reported that she had a few drinks last night. In addition she took trazodone and few tablets of Lortab.She denies any suicidal or homicidal ideation. On arrival to the ER she was hypotensive with a systolic blood pressure in the 80s and she received 3 litersof crystalloids with improvements of her blood pressure, currently at 154/ 86. On further history she reports intractable nausea and vomiting. However, she denies any abdominal pain, diarrhea or constipation.Also she denies any fever, chills or any constitutional symptoms.When I asked her specifically about her possible drug overdose she denies taking any trazodone and she stated that she took two extra tablets of Lortaband normally she takes 4 tablets a day since she had rotator cuff surgery in August. She denies any ETOH use and her last drink was in 2009. Her urinetoxicology screen was positive for opiates and benzodiazepines. Laboratory data significant for mild acute kidney injury with creatinine level of 1.52.Her lactic acid level measured at 1.8. Chest x- ray in the ER showed no acute disease. In addition, she had a CT scan of the brain which showed no acute intracranial process. The patient is awake, alert on room air oxygen with saturation of 100%. On psychiatric evaluation today patient reports that she did not overdose with the intention to . She says that she was most probably upset with her boyfriend and she was in a lot of pain she is more medication that she needed to. Patient denies suicidal intention in her overdose. At this moment patient is with her boyfriend at bedside, he reports happy mood, she denies suicidal ideation, she denies homicidal ideation, she denies visual and auditory hallucinations. She is oriented 3, no attention deficit. Review of Systems Constitutional: DENIES: Diaphoretic episodes, Fatigue, Fever, Weight gain, Weight loss, Chills, Dizziness, Change in appetite, Night Sweats Endocrine: DENIES: Abnorml menstrual pattern, Heat/cold intolerance, Polydipsia , Polyuria, Polyphagia Eyes: DENIES: Blurred vision, Diplopia, Eye inflammation, Eye pain, Vision loss , Photosensitivity, Double Vision Ears, nose, mouth, throat: DENIES: Tinnitus, Hearing loss, Vertigo, Nasal discharge, Oral lesions, Throat pain, Hoarseness, Ear Pain, Running Nose, Epistaxis, Sinus Pain, Toothache, Odynophagia Respiratory: DENIES: Apneas, Cough, Snoring, Wheezing, Hemoptysis, Sputum production, Shortness of breath Cardiovascular: DENIES: Chest pain, Palpitations, Syncope, Dyspnea on Exertion , PND, Lower Extremity Edema, Orthopnea, Claudication Musculoskeletal: DENIES: Joint pain, Muscle aches, Stiffness, Joint Swelling, Back pain, Neck pain Integumentary: DENIES: Abnormal pigmentation, Pruritus, Rash, Nail changes, Breast masses, Breast skin changes, Nipple discharge Hematologic/lymphatic: DENIES: Bruising, Lymphadenopathy Immunologic/allergic: DENIES: Eczema, Urticaria Neurologic: DENIES: Abnormal gait, Headache, Localized weakness, Paresthesias, Seizures, Speech Problems, Tremor, Poor Balance Psychiatric: COMPLAINS OF: Anxiety, DENIES: Confusion, Mood changes, Depression , Hallucinations, Agitation, Suicidal Ideation, Homicidal Ideation, Delusions Past Family Social History Coded Allergies: Sulfa (Sulfonamide Antibiotics) (Unverified Allergy, Severe, SOB, TOUNGUE SWELLS, HIVES, 01/20/17) codeine (Unverified Allergy, Severe, Nausea/Vomiting, 01/20/17) Active Scripts Hydrocodone-Acetaminophen (Lortab) 7.5-325 Mg Tab, 1 TAB PO Q6H Y for PAIN, #15 TAB 0 Refills Prov:Enriqueta Barnes 03/09/16 Reported Medications Trazodone (Trazodone) 100 Mg Tablet, 100 MG PO HS for Control Depression, #30 TAB 0 Refills 01/20/17 Dextroamphetamine (Dextroamphetamine) 5 Mg Tab, 5 MG PO BID, #60 TAB 0 Refills 01/20/17 Discontinued Reported Medications Tizanidine (Zanaflex) 4 Mg Cap, 4 MG PO BID for Muscle Spasm, CAP 0 Refills 07/08/16 Levothyroxine (Synthroid) 100 Mcg Tab, 100 MCG PO DAILY for Thyroid, #30 TAB 0 Refills 07/08/16 Current Medications Medications (Trade) Dose Ordered Sig/Yonatan Route Start Time Stop Time Status Last Admin (Duoneb Neb) 1 ampule Q4HR NEB PRN INH 01/20/17 10:15 (Heparin Inj) 5,000 units Q12H SQ 01/20/17 11:00 01/21/17 10:37 Miscellaneous Information 1 Q361D XX 01/20/17 10:15 (Chlorhexidine 2% Cloth) 3 pack Taper DAILY@04 TOP 01/21/17 04:00 01/17/18 03:59 01/21/17 03:29 (Chlorhexidine 2% Cloth) 3 pack UNSCH PRN TOP 01/20/17 10:15 (Elissa-Colace) 1 tab BID PO 01/20/17 21:00 (Milk Of Magnesia Liq) 30 ml Q12H PRN PO 01/20/17 10:15 (Senokot) 17.2 mg Q12H PRN PO 01/20/17 10:15 (Dulcolax Supp) 10 mg DAILY PRN RECTAL 01/20/17 10:15 (Lactulose Liq) 30 ml DAILY PRN PO 01/20/17 10:15 Dextrose/Sodium Chloride 1,000 ml @ 75 mls/hr [id number] IV 01/20/17 10:15 Future Hold (D50w (Vial) Inj) 50 ml UNSCH PRN IV 01/20/17 10:15 (Glucagon Inj) 1 mg UNSCH PRN OTHER 01/20/17 10:15 (NovoLIN R SUPPLEMENTAL SCALE) 1 Q6H SQ 01/20/17 11:00 Ceftriaxone Sodium 1000 mg/ Sodium Chloride 100 ml @ 200 mls/hr Q24H IV 01/20/17 14:00 01/20/17 14:00 (Apresoline Inj) 10 mg Q6H PRN IV PUSH 01/20/17 16:15 01/21/17 10:36 (Xanax) 0.5 mg Q8H PRN PO 01/21/17 08:00 01/21/17 08:41 (Toradol) 10 mg Q6H PRN PO 01/21/17 10:15 01/26/17 10:14 01/21/17 11:52 Family History No family psychiatric history Social History Patient was born and raised in [place], she lives in [facility] with her boyfriend, she has a daughter, she is unemployed, highest level of education is college Patient's Strengths (min. 2) Family support Physical Exam No tremors, no EPS, no psychomotor agitation or retardation Vital Signs Vital Signs Date Time Temp Pulse Resp B/P (MAP) Pulse Ox O2 Delivery O2 Flow Rate FiO2 01/21/17 10:00 109 01/21/17 08:00 98.3 22 163/90 (114) 100 01/20/17 08:43 Room Air I/O 01/21/17 01/21/17 01/22/17 08:00 16:00 00:00 Intake Total 650 ml Balance 650 ml Lab Results Test 01/20/17 14:32 01/21/17 04:23 01/21/17 04:34 White Blood Count 12.3 TH/MM3 9.6 TH/MM3 Red Blood Count 4.11 MIL/MM3 4.07 MIL/MM3 Hemoglobin 11.6 GM/DL 11.5 GM/DL Hematocrit 35.8 % 34.8 % Mean Corpuscular Volume 87.1 FL 85.6 FL Mean Corpuscular Hemoglobin 28.1 PG 28.2 PG Mean Corpuscular Hemoglobin Concent 32.3 % 32.9 % Red Cell Distribution Width 14.3 % 13.8 % Platelet Count 276 TH/MM3 275 TH/MM3 Mean Platelet Volume 7.0 FL 6.9 FL Neutrophils (%) (Auto) 80.5 % 77.4 % Lymphocytes (%) (Auto) 13.3 % 15.6 % Monocytes (%) (Auto) 5.3 % 6.4 % Eosinophils (%) (Auto) 0.6 % 0.3 % Basophils (%) (Auto) 0.3 % 0.3 % Neutrophils # (Auto) 9.9 TH/MM3 7.4 TH/MM3 Lymphocytes # (Auto) 1.6 TH/MM3 1.5 TH/MM3 Monocytes # (Auto) 0.7 TH/MM3 0.6 TH/MM3 Eosinophils # (Auto) 0.1 TH/MM3 0.0 TH/MM3 Basophils # (Auto) 0.0 TH/MM3 0.0 TH/MM3 CBC Comment DIFF FINAL DIFF FINAL Differential Comment Blood Urea Nitrogen 12 MG/DL 8 MG/DL Creatinine 0.95 MG/DL 0.63 MG/DL Random Glucose 126 MG/DL 111 MG/DL Calcium Level 8.4 MG/DL 8.5 MG/DL Sodium Level 143 MEQ/L 142 MEQ/L Potassium Level 4.2 MEQ/L 3.6 MEQ/L Chloride Level 111 MEQ/L 111 MEQ/L Carbon Dioxide Level 24.3 MEQ/L 23.2 MEQ/L Anion Gap 8 MEQ/L 8 MEQ/L Estimat Glomerular Filtration Rate 62 ML/MIN 100 ML/MIN Serum Osmolality 300 MOSM/KG Total Protein 7.1 GM/DL Albumin 3.2 GM/DL Alkaline Phosphatase 95 U/L Aspartate Amino Transf (AST/SGOT) 18 U/L Alanine Aminotransferase (ALT/SGPT) 25 U/L Total Bilirubin 0.7 MG/DL Thyroid Stimulating Hormone 3rd Gen 0.294 uIU/ML Date/Time Source Procedure Growth Status 01/20/17 08:35 Blood Peripheral Aerobic Blood Culture - Preliminary NO GROWTH IN 1 DAY Resulted 01/20/17 08:35 Blood Peripheral Anaerobic Blood Culture - Preliminary NO GROWTH IN 1 DAY Resulted 01/20/17 04:55 Urine Clean Catch Urine Culture - Final 50-100,000 CFU/ML MIXED GRAM POSITIVE... Complete Mental Status Examination Appearance woman, age appearing, calm and cooperative Speech: Unremarkable Orientation: x3 Memory: Unremarkable Thought Process: Logical Thought Content: Unremarkable Language Fluent and spontaneous Fund of Knowledge Adequate for level of education Hallucination Type: None Attention and Concentration: Good Suicidal Ideation: No Previous Suicide Attempts: Yes Homicidal Ideation: No Previous Homicide Attempts: No Insight: Good Judgment: WNL Affect: Good Mood: Appropriate Motor Activity: Normal gait Assessment & Plan Problem List: (1) Adjustment disorder with anxiety ICD Codes: F43.22 - Adjustment disorder with anxiety Assessment & Plan: At the moment of this psychiatric evaluation the patient does not present or report any objective or subjective symptomatology of depression, psychosis or shukri. Patient reports anxiety and difficulty sleeping at night related with hospitalization in the ICU. However, patient denies suicidal ideation, she denies homicidal ideation, she denies visual and auditory hallucinations. Patient is logical, coherent and relevant. Oriented 3, no attention deficit, fluctuation of consciousness at this time. Patient denies suicidal intentions in her recent overdose, she says, her boyfriend confirms, that she was taking education is usual for pain. Patient says that her tolerance for analgesics most probably is increased. In my opinion benzodiazepine of opiates abuse is possible in this case. Would avoid narcotics as much as possible in this patient. 3. Anxiety with the gabapentin 300 mg 3 times a day, his medication will also help with pain. Motivation, psychoeducation and support provided. She does not meet criteria for psychiatric admission. Will continue psychiatric care as an outpatient with primary psychiatrist. Consult appreciated. Assessment & Plan Estimated LOS: Miguelangel Martinez MD Jan 21, 2017 12:14
[2017-01-21] MEDS: GABAPENTIN 300 MG CAP PO SCH ×2 (13:37→17:25)
[2017-01-21] MEDS: cefTRIAXone INJ 1,000 MG in SODIUM CHLORIDE 0.9% INJ 100 ML IV SCH (13:38)
[2017-01-22] VITALS (8 sets, daily range): BP systolic 134–163; BP diastolic 87–96; PULSE 77–87; RESP 18; TEMP 98–98.2; O2SAT 99
[2017-01-22] MEDS: KETOROLAC TROMETHAMINE 10 MG TAB PO PRN ×2 (05:00→08:16)
[2017-01-22] MEDS: INSULIN NovoLIN REGULAR SUPPLEMENTAL SCALE SQ SCH ×2 (05:00→11:00)
[2017-01-22] MEDS: DOCUSATE SODIUM 50 MG/SENNA 8.6 MG TAB PO SCH (08:15)
[2017-01-22] MEDS: GABAPENTIN 300 MG CAP PO SCH ×2 (08:16→12:44)
--- NOTE | 2017-01-22 08:26 | HHI.PR ---
Subjective Remarks looks and feels more comfortable today. overall doing fine. says that her pain is better. no new complaints. d/w the RN at the bedside. Objective Vitals Vital Signs Date Time Temp Pulse Resp B/P (MAP) Pulse Ox O2 Delivery O2 Flow Rate FiO2 01/22/17 06:00 77 01/22/17 04:00 84 01/22/17 04:00 98.2 84 18 147/96 (113) 01/22/17 02:00 85 01/22/17 00:00 82 01/22/17 00:00 98.0 82 18 147/93 (111) 01/21/17 22:00 85 01/21/17 20:00 87 01/21/17 20:00 98.4 87 16 161/92 (115) 98 01/21/17 18:00 108 01/21/17 16:00 108 01/21/17 16:00 98.3 97 17 141/91 (108) 97 01/21/17 14:00 108 01/21/17 12:00 98.2 112 23 126/71 (89) 99 01/21/17 12:00 112 01/21/17 10:00 109 I/O 01/21/17 01/21/17 01/21/17 01/22/17 01/22/17 01/22/17 07:00 15:00 23:00 07:00 15:00 23:00 Intake Total 650 ml 780 ml 480 ml Balance 650 ml 780 ml 480 ml Intake Oral 650 ml 680 ml 480 ml IV Total 100 ml # Voids 8 7 2 # Bowel Movements 1 4 0 Result Diagram: 01/21/17 0423 01/21/17 0434 Imaging Last Impressions Chest X-Ray 01/20/17 0643 Signed Impressions: Service Date/Time: Friday, January 20, 2017 07:42 - CONCLUSION: No acute disease. No significant change has occurred. Kodak Cardona MD Head CT 01/20/17 2049 Signed Impressions: Service Date/Time: Friday, January 20, 2017 05:18 - CONCLUSION: Normal examination. Josh Harper Jr., MD Objective Remarks GENERAL: This is a well-nourished, well-developed patient, in no apparent distress. CARDIOVASCULAR: tachycardic without murmurs, gallops, or rubs. RESPIRATORY: Clear to auscultation. Breath sounds equal bilaterally. No wheezes , rales, or rhonchi. GASTROINTESTINAL: Abdomen soft, non-tender, nondistended. Normal, active bowel sounds MUSCULOSKELETAL: Extremities without clubbing, cyanosis, or edema. NEURO: Alert & Oriented x4 to person, place, time, situation. Moves all ext x4 Medications and IVs Current Medications Magnesium Sulfate/ Dextrose 100 ml @ 100 mls/hr ONCE ONCE IV Last administered on 01/20/17 03:30; Start 01/20/17 at 02:45; Stop 01/20/17 at 03:44 ; Status DC Sodium Chloride 1,000 ml @ 999 mls/hr BOLUS ONCE IV Last administered on 01/20 05:07; Start 01/20/17 at 05:00; Stop 01/20/17 at 06:00; Status DC Sodium Chloride 1,000 ml @ 999 mls/hr BOLUS ONCE IV Last administered on 01/20 06:34; Start 01/20/17 at 05:15; Stop 01/20/17 at 06:15; Status DC Sodium Chloride 1,000 ml @ 999 mls/hr BOLUS ONCE IV Last administered on 01/20 06:46; Start 01/20/17 at 06:15; Stop 01/20/17 at 07:15; Status DC Sodium Chloride 1,000 ml @ 999 mls/hr BOLUS ONCE IV ; Start 01/20/17 at 06:45 ; Stop 01/20/17 at 07:45; Status DC Albuterol/ Ipratropium (Duoneb Neb) 1 ampule Q4HR NEB PRN INH WHEEZING; Start 01/20/17 at 10:15 Heparin Sodium (Porcine) (Heparin Inj) 5,000 units Q12H SQ Last administered on 01/21/17 23:01; Start 01/20/17 at 11:00 Miscellaneous Information 1 Q361D XX ; Start 01/20/17 at 10:15 Chlorhexidine Gluconate (Chlorhexidine 2% Cloth) 3 pack Taper DAILY@04 TOP Last administered on 01/21/17 22:00; Start 01/21/17 at 04:00; Stop 01/17/18 at 03:59 Chlorhexidine Gluconate (Chlorhexidine 2% Cloth) 3 pack UNSCH PRN TOP HYGIENIC CARE; Start 01/20/17 at 10:15 Senna/Docusate Sodium (Elissa-Colace) 1 tab BID PO ; Start 01/20/17 at 21:00 Magnesium Hydroxide (Milk Of Magnesia Liq) 30 ml Q12H PRN PO MILD - MODERATE CONSTIPATION; Start 01/20/17 at 10:15 Sennosides (Senokot) 17.2 mg Q12H PRN PO MODERATE - SEVERE CONSTIPATION; Start 01/20/17 at 10:15 Bisacodyl (Dulcolax Supp) 10 mg DAILY PRN RECTAL SEVERE CONSITIPATION; Start at 10:15 Lactulose (Lactulose Liq) 30 ml DAILY PRN PO SEVERE CONSITIPATION; Start at 10:15 Dextrose/Sodium Chloride 1,000 ml @ 75 mls/hr [id number] IV ; Start 01/20/17 at 10 :15; Status Future Hold Dextrose (D50w (Vial) Inj) 50 ml UNSCH PRN IV HYPOGLYCEMIA-SEE COMMENTS; Start 01/20/17 at 10:15 Glucagon (Glucagon Inj) 1 mg UNSCH PRN OTHER HYPOGLYCEMIA-SEE COMMENTS; Start 01/20/17 at 10:15 Insulin Human Regular (NovoLIN R SUPPLEMENTAL SCALE) 1 Q6H SQ ; Start 01/20/17 at 11:00 Ceftriaxone Sodium 1000 mg/ Sodium Chloride 100 ml @ 200 mls/hr Q24H IV Last administered on 01/21/17 13:38; Start 01/20/17 at 14:00 Acetaminophen/ Hydrocodone Bitart ([place] 5-325 Mg) 1 tab ONCE ONCE PO Last administered on 01/20/17 16:10; Start 01/20/17 at 16:00; Stop 01/20/17 at 16:01 ; Status DC Hydralazine HCl (Apresoline Inj) 10 mg Q6H PRN IV PUSH SYS BP GREATER THAN 160 MMHG Last administered on 01/21/17 10:36; Start 01/20/17 at 16:15 Fentanyl Citrate (fentaNYL INJ) 100 mcg STK-MED ONCE .ROUTE ; Start 01/21/17 at 02:12; Stop 01/21/17 at 02:59; Status DC Fentanyl Citrate (fentaNYL INJ) 100 mcg ONCE ONCE IV Last administered on 01/21 03:15; Start 01/21/17 at 03:15; Stop 01/21/17 at 03:16; Status DC Fentanyl Citrate (fentaNYL INJ) 50 mcg NOW IV Last administered on 01/21/17 06 :05; Start 01/21/17 at 05:40; Stop 01/21/17 at 06:30; Status DC Lorazepam (Ativan Inj) 1 mg NOW IV Last administered on 01/21/17 06:05; Start 01/21/17 at 05:40; Stop 01/21/17 at 06:30; Status DC Alprazolam (Xanax) 0.5 mg Q8H PRN PO ANXIETY Last administered on 01/21/17 08: 41; Start 01/21/17 at 08:00; Stop 01/21/17 at 12:13; Status DC Ketorolac Tromethamine (Toradol) 10 mg Q6H PRN PO HEADACHE Last administered on 01/22/17 05:00; Start 01/21/17 at 10:15; Stop 01/26/17 at 10:14 Gabapentin (Neurontin) 300 mg TID PO Last administered on 01/21/17 17:25; Start 01/21/17 at 13:00 A/P Assessment and Plan A/P 1. Possible drug overdose/ possible benzo withdrawal with history of anxiety and depression started on neurontin- - psych consult appreciated and recommended outpatient f/u. 2. Hypotension, resolved- advised to have a f/u with pcp- since had occasional elevated BP readings. 3. Intractable nausea, vomiting-resolved. 5. Dehydration- received IV fluid. 6. asymptomatic bacteriuria- no need to treat with antibiotic. 7. Hypothyroidism- resume synthroid Discharge Planning likely dc home later today if BP stable. see med list. f/u; pcp and psych. d/w the patient and BERENICE. Lore Acevedo MD Jan 22, 2017 08:26
[2017-01-22] MEDS ORDERED: NEUR300C PO (08:27)
--- NOTE | 2017-01-22 08:28 | HHI.DS ---
Discharge Summary Admission Date Jan 20, 2017 at 06:46 Discharge Date: Jan 22, 2017 Admitting Diagnosis Hypotension (1) Drug overdose ICD Code: T50.901A - Poisoning by unspecified drugs, medicaments and biological substances, accidental (unintentional), initial encounter Diagnosis: Principal Status: Acute (2) Hypotension ICD Code: I95.9 - Hypotension, unspecified Diagnosis: Principal Status: Acute Procedures none Brief History - From Admission The patient is a 51-year-old female with past medical history of hypothyroidism and kidney stones. She presented to [facility] ED via EMS for possible drug overdose. The patient states that she was depressed as her boyfriend just broke up with her and initially she reported that she had a few drinks last night. In addition she took trazodone and few tablets of Lortab. CBC/BMP: 01/21/17 0423 01/21/17 0434 Significant Findings Laboratory Tests Test 01/20/17 02:25 01/20/17 04:55 01/20/17 05:00 01/20/17 07:15 White Blood Count 11.2 TH/MM3 (4.0-11.0) Neutrophils (%) (Auto) 80.8 % (16.0-70.0) Neutrophils # (Auto) 9.0 TH/MM3 (1.8-7.7) Creatinine 1.52 MG/DL (0.50-1.00) Random Glucose 110 MG/DL (74-106) Estimat Glomerular Filtration Rate 36 ML/MIN (>89) Salicylates Level LESS THAN 1.7 MG/DL Acetaminophen Level LESS THAN 2.0 MCG/ML LESS THAN 2.0 MCG/ML Urine Turbidity HAZY (CLEAR) Urine Protein 30 mg/dL (NEG-TRACE) Urine Calcium Oxalate Crystals RARE /hpf (NONE) Urine Bacteria MANY /hpf (NONE) Urine Mucus FEW /lpf (OCC) Urine Opiates Screen POS (NEG) Urine Benzodiazepines Screen POS (NEG) Test 01/20/17 11:35 01/20/17 14:32 01/21/17 04:23 01/21/17 04:34 White Blood Count 12.3 TH/MM3 (4.0-11.0) Neutrophils (%) (Auto) 80.5 % (16.0-70.0) 77.4 % (16.0-70.0) Neutrophils # (Auto) 9.9 TH/MM3 (1.8-7.7) Random Glucose 126 MG/DL (74-106) 111 MG/DL (74-106) Calcium Level 8.4 MG/DL (8.5-10.1) Chloride Level 111 MEQ/L (98-107) 111 MEQ/L (98-107) Estimat Glomerular Filtration Rate 62 ML/MIN (>89) Serum Osmolality 300 MOSM/KG (275-295) Hemoglobin 11.5 GM/DL (11.6-15.3) Hematocrit 34.8 % (35.0-46.0) Mean Platelet Volume 6.9 FL (7.0-11.0) Albumin 3.2 GM/DL (3.4-5.0) Thyroid Stimulating Hormone 3rd Gen 0.294 uIU/ML (0.358-3.740) PE at Discharge GENERAL: This is a well-nourished, well-developed patient, in no apparent distress. CARDIOVASCULAR: tachycardic without murmurs, gallops, or rubs. RESPIRATORY: Clear to auscultation. Breath sounds equal bilaterally. No wheezes , rales, or rhonchi. GASTROINTESTINAL: Abdomen soft, non-tender, nondistended. Normal, active bowel sounds MUSCULOSKELETAL: Extremities without clubbing, cyanosis, or edema. NEURO: Alert & Oriented x4 to person, place, time, situation. Moves all ext x4 Hospital Course 1. Possible drug overdose/ possible benzo withdrawal with history of anxiety and depression started on neurontin- - psych consult appreciated and recommended outpatient f/u. 2. Hypotension, resolved- 3. Intractable nausea, vomiting-resolved. 5. Dehydration- received IV fluid. 6. asymptomatic bacteriuria- no need to treat with antibiotic. 7. Hypothyroidism- resume synthroid Pt Condition on Discharge: Fair Discharge Disposition: Discharge Home Discharge Time: <= 30 minutes Discharge Instructions DIET: Follow Instructions for: Heart Healthy Diet Activities you can perform: Regular-No Restrictions Follow up Referrals: PCP Follow-up Psychiatry Adult New Medications: Gabapentin (Neurontin) 300 Mg Cap 300 MG PO TID for Pain Management for 30 Days, CAP 0 Refills Continued Medications: Dextroamphetamine (Dextroamphetamine) 5 Mg Tab 5 MG PO BID, #60 TAB 0 Refills Discontinued Medications: Hydrocodone-Acetaminophen (Lortab) 7.5-325 Mg Tab 1 TAB PO Q6H PRN for PAIN, #15 TAB 0 Refills Trazodone (Trazodone) 100 Mg Tablet 100 MG PO HS for Control Depression, #30 TAB 0 Refills Lore Acevedo MD Jan 22, 2017 08:28
[2017-01-22] MEDS: HEPARIN SODIUM - SQ 10,000 UNITS/ML VIAL SQ SCH (12:45)
[2017-01-22] MEDS: cefTRIAXone INJ 1,000 MG in SODIUM CHLORIDE 0.9% INJ 100 ML IV SCH (12:46)
== END 2017-01-22 14:30 | disposition home or self-care (01) | DRG 918 ==
LOC: NEPC 01:59 → NEDA 06:46 → HIMW 10:50
PROVIDERS: ADMIT Internal Medicine; ATTEND Internal Medicine
DX: T43.211A Poisoning by selective serotonin and norepinephrine reuptake inhibitors, accidental (unintentional), initial encounter (principal); N17.9 Acute kidney failure, unspecified; I95.9 Hypotension, unspecified; F31.9 Bipolar disorder, unspecified; F41.9 Anxiety disorder, unspecified; T40.2X1A Poisoning by other opioids, accidental (unintentional), initial encounter; E86.0 Dehydration; E03.9 Hypothyroidism, unspecified; F43.22 Adjustment disorder with anxiety; R11.2 Nausea with vomiting, unspecified; R82.71 Bacteriuria; E78.00 Pure hypercholesterolemia, unspecified; R03.0 Elevated blood-pressure reading, without diagnosis of hypertension
CPT/HCPCS: 70450; 71010; 80048; 80053; 80307; 81001; 82533; 83605; 83930; 84443; 85025; 87040; 87086; 87641; 93005; 96361; 96365; 96366; J0360; J0696; J1644; J2060; J3010; J3475; J7030

== ENCOUNTER 2017-04-24 18:21 | Emergency (ER) | payer OTHER ==
[~2017-04-24] VITALS: Ht 165.1 cm; Wt 89.0 kg
[~2017-04-24 18:21] MED LIST changes: +DEXT5TAB2 PO; -HYDR-3534 PO; -LEVO.1 PO; +NEUR300C PO; -ZANA4CAP PO
[2017-04-24 18:24] VITALS: BP 138/77; PULSE 97; RESP 16; TEMP 97.7; O2SAT 98
[2017-04-24] MEDS ORDERED: IMIT25TA PO (18:44)
[2017-04-24] MEDS ORDERED: ZANA4CAP PO (18:44)
[2017-04-24 18:46] VITALS: BP 148/94; PULSE 85; RESP 18; O2SAT 100
[2017-04-24] MEDS ORDERED: METOCLOPRAMIDE HCL 10 MG/2 ML VIAL IVP ONE (19:00)
[2017-04-24] MEDS ORDERED: KETOROLAC TROMETHAMINE 30 MG/ML (IVP) VIAL IVP ONE (19:00)
[2017-04-24] MEDS ORDERED: diphenhydrAMINE HCL 50 MG/ML VIAL IVP ONE (19:00)
[2017-04-24 19:13] LABS: AUTOMATED NEUTROPHIL # 2.6 TH/MM3 (1.8-7.7); BASOPHIL % 0.6 % (0.0-2.0); EOSINOPHIL # 0.2 TH/MM3 (0-0.4); EOSINOPHIL % 3.3 % (0.0-4.0); HEMATOCRIT 34.6 % (35.0-46.0); HEMOGLOBIN 11.5 GM/DL (11.6-15.3); LYMPH % 39.6 % (9.0-44.0); LYMPHOCYTE # 2.1 TH/MM3 (1.0-4.8); MEAN CELL VOLUME 84.6 FL (80.0-100.0); MEAN CORPUSCULAR HEMOGLOBIN 28.2 PG (27.0-34.0); MEAN CORPUSCULAR HGB CONC 33.3 % (32.0-36.0); MEAN PLATELET VOLUME 7.4 FL (7.0-11.0); MONO % 9.4 % (0.0-8.0); MONOCYTE # 0.5 TH/MM3 (0-0.9); NEUT % 47.1 % (16.0-70.0); PLATELET COUNT 298 TH/MM3 (150-450); RED BLOOD COUNT 4.09 MIL/MM3 (4.00-5.30); RED CELL DISTRIBUTION WIDTH 12.9 % (11.6-17.2); WHITE BLOOD COUNT 5.4 TH/MM3 (4.0-11.0)
--- NOTE | 2017-04-24 19:20 | PD ---
HPI Chief Complaint: Headache Time Seen by Provider: 18:36 Travel History International Travel<30 days: No Contact w/Intl Traveler<30days: No Traveled to known affect area: No History of Present Illness HPI 52-year-old female presents emergency department for evaluation of headache and vacillating blood pressure. Patient states her blood pressure gets really high and then it drops down really low. Patient states this is an ongoing problem for many months. She was evaluated by her PCP yesterday. She said that she used to be on atenolol and he doesn't want to prescribe her atenolol anymore. Patient states that her blood pressure gets high she feels funny and her speech becomes incoherent. Patient's at bedside denies any facial drooping during these episodes. At this time the patient is completely neurologically intact with no focal deficits. Patient is not currently taking any daily medication. She denies tobacco use, drug use or alcohol use. Patient states she has a headache that is in the frontal region and aching in nature chronically. Patient states today her headache is actually better than it usually is at an 7/10. PFSH Past Medical History Arthritis: No Bipolar Disorder: Yes Anxiety: Yes Depression: Yes Heart Rhythm Problems: No Cancer: No Cardiovascular Problems: No High Cholesterol: No Chest Pain: No Congestive Heart Failure: No Cerebrovascular Accident: No Diabetes: No Diminished Hearing: No Endocrine: Yes Gastrointestinal Disorders: No GERD: No Glaucoma: No Headaches: Yes Hiatal Hernia: No Hypertension: No Immune Disorder: No Implanted Vascular Access Dvce: Yes Kidney Stones: Yes Musculoskeletal: Yes (torn rotator cuff right arm; surgery in August 2016; Left repaired in 2009) Neurologic: No Psychiatric: No Reproductive: No Respiratory: No Immunizations Current: Yes Migraines: Yes Thyroid Disease: Yes (hypothyroid disease) Ulcer: No Tetanus Vaccination: < 5 Years Influenza Vaccination: Yes ?: Not LMP: 04/24/17 : 4 Para: 2 Miscarriage: 0 : 2 Ovarian Cysts: Yes (RIGHT) Tubal Ligation: Yes Past Surgical History Abdominal Surgery: No Body Medical Devices: pins left shoulder, Ear Surgery: No Endocrine Surgery: No Eye Surgery: No Genitourinary Surgery: No Gynecologic Surgery: Yes (TUBAL LIG.) Oral Surgery: No Thoracic Surgery: Yes (NIXON. AUG. MAMMOPLASTY) Other Surgery: Yes (BREAST IMPLANTS.) Social History Alcohol Use: Yes (occas) Tobacco Use: No Substance Use: No Allergies-Medications (Allergen,Severity, Reaction): Coded Allergies: Sulfa (Sulfonamide Antibiotics) (Unverified Allergy, Severe, SOB, TOUNGUE SWELLS, HIVES, 04/24/17) codeine (Unverified Allergy, Severe, Nausea/Vomiting, 04/24/17) Reported Meds & Prescriptions Reported Meds & Active Scripts Active Neurontin (Gabapentin) 300 Mg Cap 300 Mg PO TID 30 Days Reported Zanaflex (Tizanidine HCl) 4 Mg Cap 4 Mg PO HS Imitrex (Sumatriptan Succinate) 25 Mg Tab 25 Mg PO ONCE PRN If a satisfactory response has not been obtained at 2 hours, a second dose may be administered Dextroamphetamine (Dextroamphetamine Sulfate) 5 Mg Tab 5 Mg PO BID Review of Systems Except as stated in HPI: all other systems reviewed are Neg Physical Exam Narrative GENERAL: Well-nourished well-developed 52-year-old female in no acute distress. Nontoxic appearing. SKIN: Focused skin assessment warm/dry. HEAD: Atraumatic. Normocephalic. EYES: Pupils equal and round. No scleral icterus. No injection or drainage. ENT: No nasal bleeding or discharge. Mucous membranes pink and moist. NECK: Trachea midline. No JVD. CARDIOVASCULAR: Regular rate and rhythm. No murmur appreciated. RESPIRATORY: No accessory muscle use. Clear to auscultation. Breath sounds equal bilaterally. GASTROINTESTINAL: Abdomen soft, non-tender, nondistended. Hepatic and splenic margins not palpable. MUSCULOSKELETAL: No obvious deformities. No clubbing. No cyanosis. No edema. NEUROLOGICAL: Awake and alert. No obvious cranial nerve deficits. Motor grossly within normal limits. Normal speech. PSYCHIATRIC: Appropriate mood and affect; insight and judgment normal. Data Data Last Documented VS Vital Signs Date Time Temp Pulse Resp B/P (MAP) Pulse Ox O2 Delivery O2 Flow Rate FiO2 04/24/17 19:41 82 16 127/85 (99) 98 Room Air 04/24/17 18:24 97.7 Orders Orders Complete Blood Count With Diff (04/24/17 18:57) Basic Metabolic Panel (Bmp) (04/24/17 18:57) Ecg Monitoring (04/24/17 18:57) Iv Access Insert/Monitor (04/24/17 18:57) Oximetry (04/24/17 18:57) Ketorolac Inj (Toradol Inj) (04/24/17 19:00) Diphenhydramine Inj (Benadryl Inj) (04/24/17 19:00) Metoclopramide Inj (Reglan Inj) (04/24/17 19:00) Ct Brain W/O Iv Contrast(Rout) (04/24/17 18:58) Ns (Bolus) Inj (04/24/17 20:45) Labs Laboratory Tests Test 04/24/17 18:50 White Blood Count 5.4 TH/MM3 Red Blood Count 4.09 MIL/MM3 Hemoglobin 11.5 GM/DL Hematocrit 34.6 % Mean Corpuscular Volume 84.6 FL Mean Corpuscular Hemoglobin 28.2 PG Mean Corpuscular Hemoglobin Concent 33.3 % Red Cell Distribution Width 12.9 % Platelet Count 298 TH/MM3 Mean Platelet Volume 7.4 FL Neutrophils (%) (Auto) 47.1 % Lymphocytes (%) (Auto) 39.6 % Monocytes (%) (Auto) 9.4 % Eosinophils (%) (Auto) 3.3 % Basophils (%) (Auto) 0.6 % Neutrophils # (Auto) 2.6 TH/MM3 Lymphocytes # (Auto) 2.1 TH/MM3 Monocytes # (Auto) 0.5 TH/MM3 Eosinophils # (Auto) 0.2 TH/MM3 Basophils # (Auto) 0.0 TH/MM3 CBC Comment DIFF FINAL Differential Comment Blood Urea Nitrogen 20 MG/DL Creatinine 0.91 MG/DL Random Glucose 95 MG/DL Calcium Level 8.1 MG/DL Sodium Level 139 MEQ/L Potassium Level 3.7 MEQ/L Chloride Level 106 MEQ/L Carbon Dioxide Level 26.1 MEQ/L Anion Gap 7 MEQ/L Estimat Glomerular Filtration Rate 65 ML/MIN [facility] Medical Decision Making Medical Screen Exam Complete: Yes Emergency Medical Condition: Yes Differential Diagnosis Differential diagnoses include but are not limited to hypertension, headache, ICH, cephalgia Narrative Course Patient placed on monitor and IV obtained. Blood work sent to lab. CBC, BMP ordered and pending. Brain CT ordered and pending. Migraine cocktail of 1 L normal saline, 30 mg IV Toradol, 50 mg IV Benadryl, 10 mg IV Compazine ordered. CBC shows no acute abnormality, BMP shows no acute abnormality. CT of the brain is negative. Patient reassessed and feeling tremendously better. She reports complete relief of her migraine pain. Based on patient's symptoms, clinical presentation, lab results, radiological results, vital sign review and physical exam it is not necessary to admit the patient to the hospital or keep the patient in the emergency department for further evaluation. Patient will be discharged home with instructions to return the emergency Department with any worsening condition, to keep a blood pressure log after taking her blood pressure of the same time every day and follow up with the primary care physician. Diagnosis Primary Impression: Cephalgia Qualified Codes: R51 - Headache Referrals: Primary Care Physician Patient Instructions: Acute Headache (ED), General Instructions Additional Instructions: Please return to emergency department if your symptoms return or worsen. Take Imitrex as prescribed as needed for migraines. Keep a blood pressure log. Take your blood pressure the same time every day and follow-up the primary care physician. Disposition: 01 DISCHARGE HOME Condition: Stable Charity Mcadams Apr 24, 2017 19:20
[2017-04-24 19:35] LABS: BICARBONATE 26.1 MEQ/L (21.0-32.0); CALCIUM 8.1 MG/DL (8.5-10.1); CREATININE 0.91 MG/DL (0.50-1.00)
[2017-04-24 19:41] VITALS: BP 127/85; PULSE 82; RESP 16; O2SAT 98
--- NOTE | 2017-04-24 20:03 | RADRPT ---
EXAM DATE/TIME: 04/24/2017 19:42 [facility] COMPARISON: CT BRAIN W/O CONTRAST, January 20, 2017, 5:18. INDICATIONS : Headache nausea RADIATION DOSE: 56.78 CTDIvol (mGy) MEDICAL HISTORY : Renal calculi. SURGICAL HISTORY : Tubal ligation. ENCOUNTER: Initial ACUITY: 1 month PAIN SCALE: 10/10 LOCATION: cranial TECHNIQUE: Multiple contiguous axial images were obtained of the head. Using automated exposure control and adj ustment of the mA and/or kV according to patient size, radiation dose was kept as low as reasonably a chievable to obtain optimal diagnostic quality images. DICOM format image data is available electro nically for review and comparison. FINDINGS: CEREBRUM: The ventricles are normal for age. No evidence of midline shift, mass lesion, hemorrhage or acute in farction. No extra-axial fluid collections are seen. POSTERIOR FOSSA: The cerebellum and brainstem are intact. The 4th ventricle is midline. The cerebellopontine angle i s unremarkable. EXTRACRANIAL: The visualized portion of the orbits is intact. SKULL: The calvaria is intact. No evidence of skull fracture. CONCLUSION: 1. Negative noncontrast CT brain. Josh Graham MD on April 24, 2017 at 20:00 Board Certified Radiologist. This report was verified electronically.
[2017-04-24] MEDS ORDERED: SODIUM CHLOR 0.9% 1000 ML INJ 1,000 ML IV ONE (20:45)
== END 2017-04-24 21:49 | disposition home or self-care (01) ==
LOC: NEPC 18:21
DX: R51 Headache (principal); F31.9 Bipolar disorder, unspecified; F41.9 Anxiety disorder, unspecified; E03.9 Hypothyroidism, unspecified; Z87.442 Personal history of urinary calculi; Z88.2 Allergy status to sulfonamides; Z88.5 Allergy status to narcotic agent; Z79.899 Other long term (current) drug therapy
CPT/HCPCS: 70450; 80048; 85025; 96374; 96375; 99285; J1200; J1885; J2765; J7030

== ENCOUNTER 2017-05-12 13:26 | Emergency (ER) | payer OTHER ==
[~2017-05-12 13:26] MED LIST changes: +IMIT25TA PO; +ZANA4CAP PO
[2017-05-12 13:28] VITALS: BP 174/101; PULSE 75; RESP 16; TEMP 98; O2SAT 99
[2017-05-12] MEDS ORDERED: KETOROLAC TROMETHAMINE 60 MG/2 ML (IM) VIAL IM ONE (14:15)
[2017-05-12] MEDS ORDERED: PROMETHAZINE INJ 25 MG/ML VIAL IM ONE (14:15)
--- NOTE | 2017-05-12 14:22 | PD ---
HPI Chief Complaint: Headache Time Seen by Provider: 14:14 Travel History International Travel<30 days: No Contact w/Intl Traveler<30days: No Traveled to known affect area: No History of Present Illness HPI 52-year-old female presents to the emergency Department with complaint of a migraine that started a few hours ago. She has history of migraines. Headache is consistent with past headaches. She is out of her medications for her migraine headaches. Rates headache 9/10. Described as a pounding sensation. Headache is frontal. She normally takes Imitrex. When she comes emergency Department Phenergan and Toradol help with her symptoms. Reports nausea and vomiting. She has photophobia. Denies focal deficits or weakness. Denies confusion, disorientation, change in mentation, slurred speech. Denies any anticoagulant therapy. Dr. Valentin is primary care provider. Denies significant past medical history other than the migraines. Allergies to sulfa and codeine. Has no other medical complaints. No other modifying factors or associated signs and symptoms. PFSH Past Medical History Arthritis: No Bipolar Disorder: Yes Anxiety: Yes Depression: Yes Heart Rhythm Problems: No Cancer: No Cardiovascular Problems: No High Cholesterol: No Chest Pain: No Congestive Heart Failure: No Cerebrovascular Accident: No Diabetes: No Diminished Hearing: No Endocrine: Yes Gastrointestinal Disorders: No GERD: No Glaucoma: No Headaches: Yes Hiatal Hernia: No Hypertension: No Immune Disorder: No Implanted Vascular Access Dvce: Yes Kidney Stones: Yes Musculoskeletal: Yes (torn rotator cuff right arm; surgery in August 2016; Left repaired in 2009) Neurologic: No Psychiatric: No Reproductive: No Respiratory: No Immunizations Current: Yes Migraines: Yes Thyroid Disease: Yes (hypothyroid disease) Ulcer: No ?: Not : 4 Para: 2 Miscarriage: 0 : 2 Ovarian Cysts: Yes (RIGHT) Tubal Ligation: Yes Past Surgical History Abdominal Surgery: No Body Medical Devices: pins left shoulder, Ear Surgery: No Endocrine Surgery: No Eye Surgery: No Genitourinary Surgery: No Gynecologic Surgery: Yes (TUBAL LIG.) Oral Surgery: No Thoracic Surgery: Yes ( MAMMOPLASTY) Other Surgery: Yes (BREAST IMPLANTS.) Social History Alcohol Use: Yes (occas) Tobacco Use: No Substance Use: No Allergies-Medications (Allergen,Severity, Reaction): Coded Allergies: Sulfa (Sulfonamide Antibiotics) (Unverified Allergy, Severe, SOB, TOUNGUE SWELLS, HIVES, 04/24/17) codeine (Unverified Allergy, Severe, Nausea/Vomiting, 04/24/17) Reported Meds & Prescriptions Reported Meds & Active Scripts Active Imitrex (Sumatriptan Succinate) 25 Mg Tab 25 Mg PO ONCE PRN If a satisfactory response has not been obtained at 2 hours, a second dose may be administered Neurontin (Gabapentin) 300 Mg Cap 300 Mg PO TID 30 Days Reported Zanaflex (Tizanidine HCl) 4 Mg Cap 4 Mg PO HS Dextroamphetamine (Dextroamphetamine Sulfate) 5 Mg Tab 5 Mg PO BID Review of Systems Except as stated in HPI: all other systems reviewed are Neg Physical Exam Narrative GENERAL: Well-nourished, well-developed patient, in no acute distress SKIN: Warm and dry. HEAD: Atraumatic. Normocephalic. No facial droop noted. Tongue midline. Nose to finger test normal. EYES: Pupils equal and round at 3 mm with brisk reaction. No scleral icterus. No injection or drainage. PERRLA. EOMI. ENT: Mucosa pink and moist. Airway patent. NECK: Trachea midline. No lymphadenopathy. CARDIOVASCULAR: Regular rate and rhythm. No murmur appreciated. RESPIRATORY: No accessory muscle use. Clear to auscultation. Breath sounds equal bilaterally. GASTROINTESTINAL: Abdomen soft, non-tender, nondistended. Hepatic and splenic margins not palpable. Bowel sounds are active 4 quadrants. MUSCULOSKELETAL: No obvious deformities. No clubbing. No cyanosis. No edema. NEUROLOGICAL: Awake and alert. Oriented 3. No obvious cranial nerve deficits. Motor grossly within normal limits. Normal speech. No ataxia. No mid -line drift. Moves all extremities. No Upper and lower extremity drift. 5/5 strength to all extremities. PSYCHIATRIC: Appropriate mood and affect; insight and judgment normal. Data Data Last Documented VS Vital Signs Date Time Temp Pulse Resp B/P (MAP) Pulse Ox O2 Delivery O2 Flow Rate FiO2 05/12/17 15:43 20 05/12/17 15:39 164/98 (120) 05/12/17 13:28 98.0 75 99 Orders Orders Ketorolac Inj (Toradol Inj) (05/12/17 14:15) Promethazine Inj (Phenergan Inj) (05/12/17 14:15) Diphenhydramine (Benadryl) (05/12/17 15:45) Sumatriptan Inj (Imitrex Inj) (05/12/17 16:30) Ondansetron Odt (Zofran Odt) (05/12/17 16:30) Ed Discharge Order (05/12/17 16:46) MDM Medical Decision Making Medical Screen Exam Complete: Yes Emergency Medical Condition: Yes Medical Record Reviewed: Yes Differential Diagnosis Migraine headache, acute headache, tension headache Narrative Course 52-year-old female with history of migraine headaches presents with migraine headache. She is out of her medications for migraines. Dr. Valentin is a primary care provider. She is requesting Phenergan and Toradol, which she says relieves her headaches. Neuro exam is unremarkable. Phenergan and Toradol ordered. I do not feel that CT has it is necessary at this time as the Patient was seen here on 04/24/2017 and had a head CT which was unremarkable. 1518: Patient reports a little improvement in headache. She is laying in a dark quiet room with a cold rag on her face. I'll give the patient some more time to rest and for the headache to subside. 1532: Patient rates headache 7/10. Benadryl ordered. 1623: Patient continues to have headache 7/10. She reports nausea has returned. Imitrex milligrams subcutaneous and Zofran ordered. 1649: The patient just walked out of the room and said "that did it." She denies headache at this time. Says she feels much better. Denies nausea. Has no continued vomiting. She says she is ready to go home. Sumatriptan prescription provided for home. Instructed patient to follow up with neurology. Instructed patient to follow up with primary care provider. Patient verbalizes understanding and agreement with treatment plan. Patient is medically cleared and stable for discharge. Discussed reasons to return to the emergency department. Patient agrees with treatment plan. The patients vital signs are stable and the patient is stable for outpatient follow-up and treatment. Patient discharged home, stable and in no acute distress. Diagnosis Primary Impression: Cephalgia Qualified Codes: R51 - Headache Referrals: [facility] Primary Care Physician Patient Instructions: General Instructions, Migraine Headache (ED) Departure Forms: Tests/Procedures, Work Release Enter return to work date: May 13, 2017 Additional Instructions: Ibuprofen or Tylenol as directed and as needed to reduce headache Get plenty of rest: do not over sleep rest and relax in a dark, quiet room as needed Place an ice pack on the back of her neck to reduce head pain as needed Keep a headache diary of what triggers her headaches and what treatment is most effective Avoid identifiable triggers Avoid smoking, alcohol and caffeine consumption Reduce stress Follow-up with primary care provider within 1-2 days Follow-up with neurology Return immediately to the emergency department with worsening symptoms Med/Other Pt SpecificInfo: Prescription(s) given Scripts Sumatriptan (Imitrex) 25 Mg Tab 25 MG PO ONCE Y for MIGRAINE HEADACHE, #9 TAB 0 Refills If a satisfactory response has not been obtained at 2 hours, a second dose may be administered Prov: Sierra Vanegas 05/12/17 Disposition: 01 DISCHARGE HOME Condition: Stable Sierra Vanegas May 12, 2017 14:22
[2017-05-12] MEDS ORDERED: IMIT25TA PO (15:21)
[2017-05-12 15:39] VITALS: BP 164/98
[2017-05-12 15:43] VITALS: RESP 20
[2017-05-12] MEDS ORDERED: diphenhydrAMINE HCL 50 MG CAP PO ONE (15:45)
[2017-05-12] MEDS ORDERED: SUMAtriptan INJ 6 MG/0.5 ML VIAL SQ ONE (16:30)
[2017-05-12] MEDS ORDERED: ONDANSETRON ODT 4 MG TAB PO ONE (16:30)
== END 2017-05-12 16:59 | disposition home or self-care (01) ==
LOC: NEPK 13:26
DX: R51 Headache (principal); R11.2 Nausea with vomiting, unspecified; F31.9 Bipolar disorder, unspecified; F41.9 Anxiety disorder, unspecified; E03.9 Hypothyroidism, unspecified; Z87.442 Personal history of urinary calculi; Z88.2 Allergy status to sulfonamides; Z88.5 Allergy status to narcotic agent; Z79.899 Other long term (current) drug therapy
CPT/HCPCS: 96372; 99284; J1885; J2550; J3030; Q0163

== ENCOUNTER 2017-09-21 19:29 | Observation (INO) | payer OTHER ==
[2017-09-21] VITALS (7 sets, daily range): BP systolic 81–108; BP diastolic 42–63; PULSE 54–67; RESP 14–18; TEMP 98.8; O2SAT 96–100
[2017-09-21] MEDS ORDERED: CLIN300C5 PO (20:00)
[2017-09-21] MEDS ORDERED: HYDR-3583 PO (20:00)
[2017-09-21] MEDS ORDERED: KETOROLAC TROMETHAMINE 30 MG/ML (IVP) VIAL IV PUSH ONE (20:15)
[2017-09-21] MEDS ORDERED: SODIUM CHLOR 0.9% 1000 ML INJ 1,000 ML IV ONE ×2 (20:15→21:30)
--- NOTE | 2017-09-21 20:24 | PD ---
HPI Chief Complaint: Dizziness Time Seen by Provider: 19:57 Travel History International Travel<30 days: No Contact w/Intl Traveler<30days: No Traveled to known affect area: No History of Present Illness HPI The patient is a 52 year old female who presents to the [facility] emergency department with a history of left sided dental pain that she reports began on Friday. She reports that she was eating toast when a filling fell out of her tooth. This occurred in her left canine. The patient reports that since then she has developed swelling in the left side of her jaw with increased pain and throbbing. She reports that she went to her primary care physician yesterday regarding this and was given an injection of clindamycin and Toradol. She reports that she initially felt better and was able to sleep, however in the night she awoke with severe pain around 3 AM. She reports that she has been taking her usual hydrocodone and Zanaflex without relief. She reports that she plans to follow-up with her dentist, however her primary care physician recommended treatment with antibiotics quickly, therefore she was seen by him. She denies having any fevers. She reports having some chills. She denies having any nausea, vomiting, or diarrhea. She cannot recall when she last moved her bowels. The patient reports that she has taken 2 doses of the clindamycin today. Clindamycin is written to be taken 4 times per day. On review of systems otherwise, the patient denies having any lightheaded sensation , chest pain, chest pressure, shortness of breath, cough or congestion, urinary symptoms, or neurologic symptoms. [facility] Past Medical History Narrative Medical The patient's past medical history is significant for anxiety and depression, insomnia, hypothyroid disorder, chronic pain related to a rotator cuff surgery 6 months ago. Arthritis: No Bipolar Disorder: Yes Anxiety: Yes Depression: Yes Heart Rhythm Problems: No Cancer: No Cardiovascular Problems: No High Cholesterol: No Chest Pain: No Congestive Heart Failure: No Cerebrovascular Accident: No Diabetes: No Diminished Hearing: No Endocrine: Yes Gastrointestinal Disorders: No GERD: No Glaucoma: No Headaches: Yes Hiatal Hernia: No Hypertension: No Immune Disorder: No Implanted Vascular Access Dvce: Yes Kidney Stones: Yes Musculoskeletal: Yes (torn rotator cuff right arm; surgery in August 2016; Left repaired in 2009) Neurologic: No Psychiatric: No Reproductive: No Respiratory: No Immunizations Current: Yes Migraines: Yes Thyroid Disease: Yes (hypothyroid disease) Ulcer: No Influenza Vaccination: Yes ?: Not : 4 Para: 2 Miscarriage: 0 : 2 Ovarian Cysts: Yes (RIGHT) Tubal Ligation: Yes Past Surgical History Narrative Surgical The patient's past surgical history is significant for right shoulder surgery, left shoulder surgery, bilateral tubal ligation, breast augmentation. Abdominal Surgery: No Body Medical Devices: pins left shoulder, Ear Surgery: No Endocrine Surgery: No Eye Surgery: No Genitourinary Surgery: No Gynecologic Surgery: Yes (TUBAL LIG.) Oral Surgery: No Thoracic Surgery: Yes (NIXON. AUG. MAMMOPLASTY) Other Surgery: Yes (BREAST IMPLANTS.) Social History Alcohol Use: No Tobacco Use: No Substance Use: No Allergies-Medications (Allergen,Severity, Reaction): Coded Allergies: Sulfa (Sulfonamide Antibiotics) (Unverified Allergy, Severe, SOB, TOUNGUE SWELLS, HIVES, 09/21/17) codeine (Unverified Allergy, Severe, Nausea/Vomiting, 09/21/17) Reported Meds & Prescriptions Reported Meds & Active Scripts Active Imitrex (Sumatriptan Succinate) 25 Mg Tab 25 Mg PO ONCE PRN If a satisfactory response has not been obtained at 2 hours, a second dose may be administered Neurontin (Gabapentin) 300 Mg Cap 300 Mg PO TID 30 Days Reported Hydrocodone-Acetaminophen 10-325 mg Tab 1 Tab PO Q6H PRN Clindamycin (Clindamycin HCl) 300 Mg Cap 300 Mg PO QID Zanaflex (Tizanidine HCl) 4 Mg Cap 4 Mg PO HS Dextroamphetamine (Dextroamphetamine Sulfate) 5 Mg Tab 5 Mg PO BID Review of Systems Except as stated in HPI: all other systems reviewed are Neg General / Constitutional: No: Fever Eyes: No: Visual changes HENT: Positive: Dental Difficulties, No: Headaches, Lightheadedness, Congestion , Neck Stiffness, Neck Pain Cardiovascular: No: Chest Pain or Discomfort Respiratory: No: Cough, Shortness of Breath Gastrointestinal: No: Nausea, Vomiting, Diarrhea, Abdominal Pain Genitourinary: No: Dysuria Musculoskeletal: No: Pain Skin: No Rash Neurologic: No: Weakness, Focal Abnormalities, Change in Mentation, Slurred Speech, Sensory Disturbance Psychiatric: No: Depression Endocrine: No: Polydipsia Hematologic/Lymphatic: No: Easy Bruising Physical Exam Narrative General: The patient is a well-developed well nourished female in no acute distress. Head and Neck exam: Head is normocephalic atraumatic. Eyes: EOMI, pupils are equal round and reactive to light. The patient's pupils are 2-3 mm bilaterally. Nose: Midline septum with pink mucous membranes Mouth: The patient has had all of her teeth pulled in the maxilla with a denture in place. The patient has had most of her posterior teeth pulled and the mandible, however she does have her incisors and canines bilaterally. The area of interest is the canine that does appear to have loss of a filling on the left. The patient also has what appears to be a tooth broken off at the root just posterior to the left canine. There is no jamie abscess formation. There is slight gingival erythema. There is tenderness to palpation along the site. No swelling underneath the patient's tongue. Moist mucus membranes. Posterior oropharynx is not erythematous. No tonsillar hypertrophy. Uvula midline. Airway patent. Neck: No palpable lymphadenopathy. No nuchal rigidity. No thyromegaly. Cardiovascular: Regular rate and rhythm without murmurs, gallops, or rubs. No pulse deficit to the extremities on simultaneous auscultation and palpation of her radial artery. Lungs: Clear to auscultation bilaterally. No wheezes, rhonchi, or rales. Abdomen: Soft, without tenderness to palpation in all 4 quadrants of the abdomen. No guarding, rebound, or rigidity. Normal bowel sounds are audible. No tenderness on palpation of McBurney's point. Negative Graham sign. Extremities: No clubbing, cyanosis, or edema. 2+ pulses in all 4 extremities. Back: No costovertebral angle tenderness to palpation. Neurologic Exam: Grossly nonfocal peer Skin Exam: No rash noted. Intact skin that is warm and dry. Data Data Last Documented VS Vital Signs Date Time Temp Pulse Resp B/P (MAP) Pulse Ox O2 Delivery O2 Flow Rate FiO2 09/21/17 22:41 64 16 95/54 (68) 98 Room Air 09/21/17 19:45 98.8 Orders Orders Electrocardiogram (09/21/17 20:10) Complete Blood Count With Diff (09/21/17 20:10) Comprehensive Metabolic Panel (09/21/17 20:10) Blood Culture (09/21/17 20:10) C-Reactive Protein (Crp) (09/21/17 20:10) Urinalysis - C+S If Indicated (09/21/17 20:10) Magnesium (Mg) (09/21/17 20:10) Thyroid Stimulating Hormone (09/21/17 20:10) Iv Access Insert/Monitor (09/21/17 20:10) Ecg Monitoring (09/21/17 20:10) Oximetry (09/21/17 20:10) Lactic Acid Sepsis Protocol (09/21/17 20:10) Ct Facial Bones W Iv Contrast (09/21/17 ) Sodium Chlor 0.9% 1000 Ml Inj (Ns 1000 M (09/21/17 20:15) Ketorolac Inj (Toradol Inj) (09/21/17 20:15) Sodium Chlor 0.9% 1000 Ml Inj (Ns 1000 M (09/21/17 21:30) Drug Screen, Random Urine (09/21/17 21:26) Alcohol (Ethanol) (09/21/17 21:26) Iohexol 350 Inj (Omnipaque 350 Inj) (09/21/17 22:12) Piperacil-Tazo 3.375 Gm Premix (Zosyn 3. (09/21/17 22:30) Admit Order (Ed Use Only) (09/21/17 22:46) Labs Laboratory Tests Test 09/21/17 20:25 09/21/17 22:15 White Blood Count 7.1 TH/MM3 Red Blood Count 3.88 MIL/MM3 Hemoglobin 10.9 GM/DL Hematocrit 32.6 % Mean Corpuscular Volume 84.2 FL Mean Corpuscular Hemoglobin 28.1 PG Mean Corpuscular Hemoglobin Concent 33.4 % Red Cell Distribution Width 13.1 % Platelet Count 277 TH/MM3 Mean Platelet Volume 7.5 FL Neutrophils (%) (Auto) 64.2 % Lymphocytes (%) (Auto) 25.5 % Monocytes (%) (Auto) 7.1 % Eosinophils (%) (Auto) 2.5 % Basophils (%) (Auto) 0.7 % Neutrophils # (Auto) 4.5 TH/MM3 Lymphocytes # (Auto) 1.8 TH/MM3 Monocytes # (Auto) 0.5 TH/MM3 Eosinophils # (Auto) 0.2 TH/MM3 Basophils # (Auto) 0.0 TH/MM3 CBC Comment DIFF FINAL Differential Comment Blood Urea Nitrogen 18 MG/DL Creatinine 0.93 MG/DL Random Glucose 106 MG/DL Total Protein 6.8 GM/DL Albumin 2.9 GM/DL Calcium Level 8.3 MG/DL Magnesium Level 2.0 MG/DL Alkaline Phosphatase 74 U/L Aspartate Amino Transf (AST/SGOT) 12 U/L Alanine Aminotransferase (ALT/SGPT) 16 U/L Total Bilirubin 0.9 MG/DL Sodium Level 140 MEQ/L Potassium Level 4.5 MEQ/L Chloride Level 108 MEQ/L Carbon Dioxide Level 25.2 MEQ/L Anion Gap 7 MEQ/L Estimat Glomerular Filtration Rate 63 ML/MIN Lactic Acid Level 1.0 mmol/L C-Reactive Protein 6.30 MG/DL Thyroid Stimulating Hormone 3rd Gen 2.430 uIU/ML Ethyl Alcohol Level LESS THAN 3 MG/DL Urine Color LIGHT-YELLOW Urine Turbidity HAZY Urine pH 7.0 Urine Specific [place] 1.007 Urine Protein NEG mg/dL Urine Glucose (UA) NEG mg/dL Urine Ketones NEG mg/dL Urine Occult Blood SMALL Urine Nitrite NEG Urine Bilirubin NEG Urine Urobilinogen LESS THAN 2.0 MG/DL Urine Leukocyte Esterase SMALL Urine RBC LESS THAN 1 /hpf Urine WBC 5 /hpf Urine Squamous Epithelial Cells 6 /hpf Urine Transitional Epithelial Cells <1 /hpf Urine Uric Acid Crystals MOD /hpf Urine Amorphous Sediment RARE Urine Bacteria OCC /hpf Urine Mucus FEW /lpf Microscopic Urinalysis Comment CULT NOT INDICATED Urine Opiates Screen NEG Urine Barbiturates Screen NEG Urine Amphetamines Screen POS Urine Benzodiazepines Screen POS Urine Cocaine Screen NEG Urine Cannabinoids Screen NEG MDM Medical Decision Making Medical Screen Exam Complete: Yes Emergency Medical Condition: Yes Medical Record Reviewed: Yes Differential Diagnosis Sepsis related to dental infection, versus overmedication with opiates, versus deep soft tissue infection, versus osteomyelitis of the jaw, dentalgia Narrative Course During the course of the patient's emergency department visit, the patient's history, examination, and differential diagnosis were reviewed with the patient. The patient was placed on a desk monitor with oximetry and frequent blood pressure monitoring. The patient had IV access obtained and blood work sent for analysis. The patient initially on triage was noted to have a blood pressure of 85 systolic, however on arrival back in the room the patient's blood pressure is 100/57. I suspect that the patient's blood pressure being low is related to overmedication as she had a history from reviewing the record of similar symptoms in the past. The patient denies being symptomatic with the lower blood pressure out in triage. However because of this low blood pressure a sepsis workup will be started. The patient had an EKG done on arrival that shows a sinus rhythm heart rate of 61, QRS duration 84 ms, QTC [address] segment elevation or depression, T waves are inverted in V1. The patient was initially provided normal saline 1 L IV fluid bolus, Toradol 15 mg IV for pain. The patient's laboratory studies were reviewed and remarkable for a white count of 7.1, hemoglobin 10.9, platelets 277 with a normal differential, CMP is remarkable for chloride of 108, GFR of 63, calcium 8.3, magnesium 2.0, AST 12, C -reactive protein 6.30, albumin 2.9, TSH 2.43. Lactic acid is 1.0, urine drug screen is positive for amphetamines and benzodiazepines, alcohol level is less than 3, urinalysis shows small occult blood small leukocyte esterase moderate uric acid crystals, occasional bacteria, culture not indicated Radiology studies were reviewed and remarkable for a CT scan reveals findings consistent with left facial cellulitis abutting the left mandible without drainable abscess. There is a dental Bell involving the left premolar. Regional subsegmental and level 2/3 lymphadenopathy are likely reactive infectious in etiology. #2 there is a 5 mm enhancing lesion in the inferior right parotid gland likely reflecting a parotid lymph node. Consider ultrasound examination on an outpatient basis following resolution of the patient's symptoms. The patient had a recurrence of hypotension down to 81/50. The patient was given an total 2 L of normal saline IV fluids. The patient's blood pressure continue to be on the lower side at 95/54. The patient's prior vital signs were reviewed in the record and the patient has been on multiple occasions in the past normotensive to hypertensive. I spoke to the hospitalist, regarding this patient's case. Dr. Birmingham agreed to admit the patient for observation. The patient's results were discussed with the patient, including the plan of care. I explained that further testing and/ or monitoring is indicated based on the patient's history, examination, and/ or laboratory findings. Therefore, I recommended admission for additional evaluation. The patient expressed understanding and was agreeable with this plan. The patient was admitted to the hospital in stable condition and sent to a bed under the care of [facility]. Physician Communication Physician Communication The patient's case including history, pertinent physical examination findings, and laboratory studies were discussed with Dr. Birmingham. It was [facility] Diagnosis Primary Impression: Hypotension Qualified Codes: I95.9 - Hypotension, unspecified Additional Impression: Infected dental caries Admitting Information Admitting Physician Requests: Observation Dulce Bhatti MD September 21, 2017 20:24
[2017-09-21 20:50] LABS: AUTOMATED NEUTROPHIL # 4.5 TH/MM3 (1.8-7.7); BASOPHIL % 0.7 % (0.0-2.0); EOSINOPHIL # 0.2 TH/MM3 (0-0.4); EOSINOPHIL % 2.5 % (0.0-4.0); HEMATOCRIT 32.6 % (35.0-46.0); HEMOGLOBIN 10.9 GM/DL (11.6-15.3); LYMPH % 25.5 % (9.0-44.0); LYMPHOCYTE # 1.8 TH/MM3 (1.0-4.8); MEAN CELL VOLUME 84.2 FL (80.0-100.0); MEAN CORPUSCULAR HEMOGLOBIN 28.1 PG (27.0-34.0); MEAN CORPUSCULAR HGB CONC 33.4 % (32.0-36.0); MEAN PLATELET VOLUME 7.5 FL (7.0-11.0); MONO % 7.1 % (0.0-8.0); MONOCYTE # 0.5 TH/MM3 (0-0.9); NEUT % 64.2 % (16.0-70.0); PLATELET COUNT 277 TH/MM3 (150-450); RED BLOOD COUNT 3.88 MIL/MM3 (4.00-5.30); RED CELL DISTRIBUTION WIDTH 13.1 % (11.6-17.2); WHITE BLOOD COUNT 7.1 TH/MM3 (4.0-11.0)
[2017-09-21 20:58] LABS: ALBUMIN 2.9 GM/DL (3.4-5.0); ALT (GPT) 16 U/L (10-53); AST (GOT) 12 U/L (15-37); BICARBONATE 25.2 MEQ/L (21.0-32.0); BLOOD UREA NITROGEN 18 MG/DL (7-18); CALCIUM 8.3 MG/DL (8.5-10.1); CHLORIDE 108 MEQ/L (98-107); CREATININE 0.93 MG/DL (0.50-1.00); GLOMERULAR FILTRATION RATE 63 ML/MIN (>89); GLUCOSE,RANDOM 106 MG/DL (74-106); SODIUM (NA) 140 MEQ/L (136-145)
[2017-09-21 21:07] LABS: ALKALINE PHOSPHATASE 74 U/L (45-117); TOTAL BILIRUBIN ADULT 0.9 MG/DL (0.2-1.0); TOTAL PROTEIN 6.8 GM/DL (6.4-8.2)
[2017-09-21] MEDS ORDERED: IOHEXOL 350 MG/ML 10 ML VIAL (for RAD DIAG) IVCONTRAST ONE (22:12)
[2017-09-21] MEDS ORDERED: PIPERACIL-TAZO 3.375 GM PREMIX 50 ML IV ONE (22:30)
--- NOTE | 2017-09-21 22:32 | RADRPT ---
EXAM DATE/TIME: 09/21/2017 22:09 [place] COMPARISON: No previous studies available for comparison. INDICATIONS : Left jaw pain with swelling. IV CONTRAST: 75 cc Omnipaque 350 (iohexol) IV RADIATION DOSE: 48.47 CTDIvol (mGy) MEDICAL HISTORY : None SURGICAL HISTORY : Tubal ligation. ENCOUNTER: Initial ACUITY: 1 day PAIN SCALE: 7/10 LOCATION: Left facial TECHNIQUE: Volumetric scanning of the facial bones was performed. Using automated exposure control and adjustme nt of the mA and/or kV according to patient size, radiation dose was kept as low as reasonably achiev able to obtain optimal diagnostic quality images. DICOM format image data is available electronicall y for review and comparison. FINDINGS: SOFT TISSUES: Diffuse soft tissue stranding and inflammatory change in the left jaw adjacent to the mandible. No fo alexia drainable fluid collections. No associated erosive bony changes. There is a dental colten involvin g the left pre-molar. Multiple submental enlarged nodes and multiple subcentimeter level II and 3 nod es are likely reactive/infectious radiology. Air is seen in multiple superficial veins. This was likely introduced through patient's IV. 5 mm enhancing lesion in the inferior right parotid gland lik grace reflects a parotid lymph node. ORBITS: The orbital and infraorbital osseous structures are intact. The retroconal structures have a normal configuration. No radiopaque foreign bodies are seen. NASAL BONE: The nasal bone and maxillary spine are intact ZYGOMATIC ARCHES: Symmetric without evidence of fracture. SINUSES: Mucoperiosteal thickening and opacification of the distal right sphenoid sinus. Mild mucoperiosteal t hickening of the maxillary sinuses and ethmoid air cells. No air-fluid levels seen. NASAL CAVITY: The nasal septum is intact and midline. The lacrimal ducts are intact. INTRACRANIAL: No intracranial air seen. CRIBIFORM PLATE: Grossly intact. CONCLUSION: 1. Findings consistent with left facial cellulitis abutting the left mandible without drainable absce ss. There is a dental minor involving the left premolar. Regional submental and level 2/3 lymphadeno gabo are likely reactive/infectious in etiology. 2. 5 mm enhancing lesion in the inferior right parotid gland likely reflects a parotid lymph node. Co nsider ultrasound examination on outpatient basis following resolution of patient's symptoms. 1. Gómez Mota MD on September 21, 2017 at 22:20 Board Certified Radiologist. This report was verified electronically.
--- NOTE | 2017-09-21 22:35 | EKG ---
Date Performed: 09/21/2017 Time Performed: 20:21:20 PTAGE: 52 years EKG: Sinus rhythm LOW QRS VOLTAGE IN PRECORDIAL LEADS BORDERLINE ECG PREVIOUS TRACING : 01/20/2017 06.48 No significant change from previous tracing noted. DOCTOR: Jagdish Forbes Interpretating Date/Time 09/21/2017 22:33:45
[2017-09-21 22:56] LABS: AMORPHOUS SEDIMENT, URINE RARE; BACTERIA, URINE OCC /hpf; BILIRUBIN, URINE NEG (NEG); BLOOD, URINE SMALL (NEG); GLUCOSE,URINE NEG (NEG); KETONE, URINE NEG (NEG); MUCUS URINE FEW /lpf (OCC); NITRITE,URINE NEG (NEG); SQUAMOUS EPITHELIAL CELL URINE 6 /hpf (0-5); TRANSITIONAL EPI CELLS, URINE <1 /hpf; URIC ACID CRYSTALS, URINE MOD /hpf; URINE COLOR LIGHT-YELLOW (YELLW/STRAW); URINE LEUKOCYTE ESTERASE SMALL (NEG)
--- NOTE | 2017-09-21 23:25 | HHI.HP ---
HPI Service [facility] Primary Care Physician Reilly Valentin MD Admission Diagnosis Hypotension, left facial infection Diagnoses: (1) Hypotension Diagnosis: Principal (2) Dental infection Diagnosis: Principal Travel History International Travel<30 Days: No Contact w/Intl Traveler <30 Da: No Traveled to Known Affected Are: No History of Present Illness This is a 52-year-old female with a PMH of Anxiety, Depression and Right Shoulder Pain s/p Rotator Cuff Repair who presented to the ER w/ complaints of left-sided facial pain and swelling. States she was seen by her PCP yesterday for similar symptoms and started on Clinda 300mg q6h, has taken 2 doses so far. Reports having severe pain, 10/10, constant, w/ no alleviating factors, decided to take her medications left over from her recent rotator cuff surgery 6mo ago, including Zanaflex 4mg and Hydrocodone 10/325. States she normally takes Zanaflex once at night, however took 3 tablets throughout the course of the day today, in addition to Hydrocodone 4 times today. On arrival, noted to have BP 70's systolic. No mental status changes, denies dizziness. BP 85/42, HR 55, O2 sat 97% on RA, Afebrile. S/p 2L IVF in ER w/ improvement, however persistent episodes of hypotension and asked to admit for observation. Pt asymptomatic. CBC unremarkable. Chemistry unremarkable. Lactic Acid 1.0. UA negative for UTI. Urine Drug Screen positive for Amphetamines and Benzo. CT Maxillofacial left facial cellulitis no drainable abscess. S/p Zosyn in ER Review of Systems Except as stated in HPI: all other systems reviewed are Neg ROS: 14 point review of systems otherwise negative. Past Family Social History Past Medical History PMH: Anxiety, Depression and Right Shoulder Pain s/p Rotator Cuff Repair Past Surgical History PAST SURGICAL HISTORY: Tubal Ligation, Breast Implants, Right Shoulder Surgery Allergies: Coded Allergies: Sulfa (Sulfonamide Antibiotics) (Unverified Allergy, Severe, SOB, TOUNGUE SWELLS, HIVES, 09/21/17) codeine (Unverified Allergy, Severe, Nausea/Vomiting, 09/21/17) Family History PAST FAMILY HISTORY: Reviewed. No h/o DM or CAD Social History PAST SOCIAL HISTORY: Negative for alcohol, tobacco or drugs. Physical Exam Vital Signs Vital Signs Date Time Temp Pulse Resp B/P (MAP) Pulse Ox O2 Delivery O2 Flow Rate FiO2 09/21/17 23:10 56 16 108/63 (78) 98 Room Air 09/21/17 22:41 64 16 95/54 (68) 98 Room Air 09/21/17 22:05 59 16 91/51 (64) 96 Room Air 09/21/17 21:09 54 14 81/50 (60) 97 Room Air 09/21/17 20:02 67 18 100/57 (71) 100 Room Air 09/21/17 19:45 98.8 55 14 85/42 (56) 97 Physical Exam PE: GENERAL: Middle-aged white female in no acute distress. HEENT: PERRLA, EOMI. No scleral icterus or conjunctival pallor. No lid lag or facial droop. Mild left facial swelling. CARDIOVASCULAR: Regular rate and rhythm. No obvious murmurs to auscultation. No chest tenderness to palpation. RESPIRATORY: No obvious rhonchi or wheezing. Clear to auscultation. Breath sounds equal bilaterally. GASTROINTESTINAL: Abdomen soft, non-tender, nondistended. BS normal. MUSCULOSKELETAL: Extremities without clubbing, cyanosis, or edema. No obvious deformities. NEUROLOGICAL: Awake, alert and oriented x4. No focal neurologic deficits. Moving both upper and lower extremities spontaneously. Laboratory Laboratory Tests Test 09/21/17 20:25 09/21/17 22:15 White Blood Count 7.1 Red Blood Count 3.88 Hemoglobin 10.9 Hematocrit 32.6 Mean Corpuscular Volume 84.2 Mean Corpuscular Hemoglobin 28.1 Mean Corpuscular Hemoglobin Concent 33.4 Red Cell Distribution Width 13.1 Platelet Count 277 Mean Platelet Volume 7.5 Neutrophils (%) (Auto) 64.2 Lymphocytes (%) (Auto) 25.5 Monocytes (%) (Auto) 7.1 Eosinophils (%) (Auto) 2.5 Basophils (%) (Auto) 0.7 Neutrophils # (Auto) 4.5 Lymphocytes # (Auto) 1.8 Monocytes # (Auto) 0.5 Eosinophils # (Auto) 0.2 Basophils # (Auto) 0.0 CBC Comment DIFF FINAL Differential Comment Blood Urea Nitrogen 18 Creatinine 0.93 Random Glucose 106 Total Protein 6.8 Albumin 2.9 Calcium Level 8.3 Magnesium Level 2.0 Alkaline Phosphatase 74 Aspartate Amino Transf (AST/SGOT) 12 Alanine Aminotransferase (ALT/SGPT) 16 Total Bilirubin 0.9 Sodium Level 140 Potassium Level 4.5 Chloride Level 108 Carbon Dioxide Level 25.2 Anion Gap 7 Estimat Glomerular Filtration Rate 63 Lactic Acid Level 1.0 C-Reactive Protein 6.30 Thyroid Stimulating Hormone 3rd Gen 2.430 Ethyl Alcohol Level LESS THAN 3 Urine Color LIGHT-YELLOW Urine Turbidity HAZY Urine pH 7.0 Urine Specific [place] 1.007 Urine Protein NEG Urine Glucose (UA) NEG Urine Ketones NEG Urine Occult Blood SMALL Urine Nitrite NEG Urine Bilirubin NEG Urine Urobilinogen LESS THAN 2.0 Urine Leukocyte Esterase SMALL Urine RBC LESS THAN 1 Urine WBC 5 Urine Squamous Epithelial Cells 6 Urine Transitional Epithelial Cells <1 Urine Uric Acid Crystals MOD Urine Amorphous Sediment RARE Urine Bacteria OCC Urine Mucus FEW Microscopic Urinalysis Comment CULT NOT INDICATED Urine Opiates Screen NEG Urine Barbiturates Screen NEG Urine Amphetamines Screen POS Urine Benzodiazepines Screen POS Urine Cocaine Screen NEG Urine Cannabinoids Screen NEG Date/Time Source Procedure Growth Status 09/21/17 20:25 Blood Peripheral Aerobic Blood Culture Pending Received 09/21/17 20:25 Blood Peripheral Anaerobic Blood Culture Pending Received Result Diagram: 09/21/17202409/21/172024 Caprini VTE Risk Assessment Caprini VTE Risk Assessment: No/Low Risk (score <= 1) Caprini Risk Assessment Model Point Value = 1 Point Value = 2 Point Value = 3 Point Value = 5 Age 41-60 Minor surgery BMI > 25 kg/m2 Swollen legs Varicose veins or History of unexplained or recurrent spontaneous Oral contraceptives or hormone replacement Sepsis (< 1 month) Serious lung disease, including pneumonia (< 1 month) Abnormal pulmonary function Acute myocardial infarction Congestive heart failure (< 1 month) History of inflammatory bowel disease Medical patient at bed rest Age 61-74 Arthroscopic surgery Major open surgery (> 45 min) Laparoscopic surgery (> 45 min) Malignancy Confined to bed (> 72 hours) Immobilizing plaster cast Central venous access Age >= 75 History of VTE Family history of VTE Factor V Leiden Prothrombin [id number] Lupus anticoagulant Anticardiolipin antibodies Elevated serum homocysteine Heparin-induced thrombocytopenia Other congenital or acquired thrombophilia Stroke (< 1 month) Elective arthroplasty Hip, pelvis, or leg fracture Acute spinal cord injury (< 1 month) Prophylaxis Regimen Total Risk Factor Score Risk Level Prophylaxis Regimen 0-1 Low Early ambulation 2 Moderate Order ONE of the following: *Sequential Compression Device (SCD) *Heparin 5000 units SQ BID 3-4 Higher Order ONE of the following medications: *Heparin 5000 units SQ TID *Enoxaparin/Lovenox 40 mg SQ daily (WT < 150 kg, CrCl > 30 mL/min) *Enoxaparin/Lovenox 30 mg SQ daily (WT < 150 kg, CrCl > 10-29 mL/min) *Enoxaparin/Lovenox 30 mg SQ BID (WT < 150 kg, CrCl > 30 mL/min) AND/OR *Sequential Compression Device (SCD) 5 or more Highest Order ONE of the following medications: *Heparin 5000 units SQ TID (Preferred with Epidurals) *Enoxaparin/Lovenox 40 mg SQ daily (WT < 150 kg, CrCl > 30 mL/min) *Enoxaparin/Lovenox 30 mg SQ daily (WT < 150 kg, CrCl > 10-29 mL/min) *Enoxaparin/Lovenox 30 mg SQ BID (WT < 150 kg, CrCl > 30 mL/min) AND *Sequential Compression Device (SCD) Assessment and Plan Problem List: (1) Hypotension ICD Code: I95.9 - Hypotension, unspecified Status: Acute (2) Dental infection ICD Code: K04.7 - Periapical abscess without sinus Assessment and Plan A/P: 1. Hypotension: secondary to medications, took 3 doses of Zanaflex 4mg and 4 doses of Hydrocodone 10mg for dental/facial pain today, BP on arrival 80's systolic, s/p 2L IVF w/ some improvement, however persistent episodes of hypotension while in ER, asked to admit for Observation. Pt asymptomatic. Telemetry, IVF, hold narcotics at this time. 2. Dental Infection: left-sided facial swelling/pain, recently started on Clinda by PCP, took [address] Maxillofacial w/ left facial cellulitis, no abscess, images reviewed by me. Afebrile, no leukocytosis. S/p Zosyn in ER, continue w/ IV Clinda, d/c home w/ Clinda PO. 3. DVT Prophylaxis: SCD/Teds 4. Social work for DC planning as needed. 5. Case discussed at length with the ER physician, lab/record/imaging reviewed by me. Problem Qualifiers (1) Hypotension: Qualified Codes: I95.9 - Hypotension, unspecified Karen Birmingham MD September 21, 2017 23:25
[2017-09-21] MEDS ORDERED: ACETAMINOPHEN 325 MG TAB PO PRN (23:30)
[2017-09-21] MEDS ORDERED: SENNOSIDES 8.6 MG TAB PO PRN (23:30)
[2017-09-21] MEDS ORDERED: MAGNESIUM HYDROXIDE SUSP 30 ML CUP PO PRN (23:30)
[2017-09-21] MEDS ORDERED: SODIUM CHLORIDE 0.9% FLUSH 10 ML FLUSH IV FLUSH PRN (23:30)
[2017-09-21] MEDS ORDERED: LACTULOSE SYRUP 20 GM/30 ML CUP PO PRN (23:30)
[2017-09-21] MEDS ORDERED: ACETAMINOPHEN/HYDROcodone 325 MG/5 MG TAB PO PRN (23:30)
[2017-09-21] MEDS ORDERED: METOCLOPRAMIDE HCL 10 MG/2 ML VIAL IV PUSH PRN (23:30)
[2017-09-21] MEDS ORDERED: BISACODYL 10 MG SUPP RECTAL PRN (23:30)
[2017-09-21] MEDS: SODIUM CHLOR 0.9% 1000 ML INJ 1,000 ML IV SCH (23:54)
[2017-09-22] VITALS (8 sets, daily range): BP systolic 97–169; BP diastolic 58–94; PULSE 37–75; RESP 16–18; TEMP 97.4–98.5; O2SAT 93–100
[2017-09-22] MEDS: ACETAMINOPHEN/HYDROcodone 325 MG/10 MG TAB PO PRN ×2 (00:04→05:34)
[2017-09-22] MEDS: CLINDAMYCIN 900 MG/NS PREMIX 50 ML IV SCH ×3 (05:34→21:58)
[2017-09-22] MEDS: SODIUM CHLOR 0.9% 1000 ML INJ 1,000 ML IV SCH ×3 (05:36→21:58)
[2017-09-22] MEDS ORDERED: KETOROLAC TROMETHAMINE 30 MG/ML (IVP) VIAL IV PUSH ONE (07:30)
[2017-09-22 07:56] LABS: AUTOMATED NEUTROPHIL # 3.6 TH/MM3 (1.8-7.7); BASOPHIL % 0.4 % (0.0-2.0); EOSINOPHIL # 0.2 TH/MM3 (0-0.4); EOSINOPHIL % 3.1 % (0.0-4.0); HEMATOCRIT 30.4 % (35.0-46.0); HEMOGLOBIN 10.2 GM/DL (11.6-15.3); LYMPH % 30.2 % (9.0-44.0); LYMPHOCYTE # 1.9 TH/MM3 (1.0-4.8); MEAN CELL VOLUME 85.6 FL (80.0-100.0); MEAN CORPUSCULAR HEMOGLOBIN 28.7 PG (27.0-34.0); MEAN CORPUSCULAR HGB CONC 33.6 % (32.0-36.0); MEAN PLATELET VOLUME 7.6 FL (7.0-11.0); MONOCYTE # 0.6 TH/MM3 (0-0.9); NEUT % 57.3 % (16.0-70.0); PLATELET COUNT 218 TH/MM3 (150-450); RED BLOOD COUNT 3.55 MIL/MM3 (4.00-5.30); WHITE BLOOD COUNT 6.3 TH/MM3 (4.0-11.0)
[2017-09-22] MEDS: SODIUM CHLORIDE 0.9% FLUSH 10 ML FLUSH IV FLUSH SCH ×2 (08:20→21:00)
[2017-09-22 08:28] LABS: ALBUMIN 2.7 GM/DL (3.4-5.0); ALT (GPT) 14 U/L (10-53); AST (GOT) 12 U/L (15-37); BICARBONATE 23.8 MEQ/L (21.0-32.0); BLOOD UREA NITROGEN 13 MG/DL (7-18); CALCIUM 8.3 MG/DL (8.5-10.1); CHLORIDE 111 MEQ/L (98-107); CREATININE 0.89 MG/DL (0.50-1.00); GLOMERULAR FILTRATION RATE 67 ML/MIN (>89); GLUCOSE,RANDOM 103 MG/DL (74-106); SODIUM (NA) 143 MEQ/L (136-145)
[2017-09-22 08:34] LABS: ALKALINE PHOSPHATASE 74 U/L (45-117); TOTAL BILIRUBIN ADULT 0.4 MG/DL (0.2-1.0); TOTAL PROTEIN 6.2 GM/DL (6.4-8.2)
[2017-09-22] MEDS ORDERED: DOCUSATE SODIUM 50 MG/SENNA 8.6 MG TAB PO SCH (09:00)
[2017-09-22] MEDS: DOCUSATE SODIUM 50 MG/SENNA 8.6 MG TAB PO SCH ×2 (09:00→21:59)
--- NOTE | 2017-09-22 10:31 | HHI.PR ---
Subjective Remarks Follow up for left facial cellulitis. The patient reports mild improvement overnight, however left face still with diffuse erythema/edema and pain with associated lymphadenopathy throughout the neck. Denies fevers/chills. She is able to tolerate oral intake. Denies any opens sores in the mouth. Denies any other medical complaints at this time. Objective Vitals Vital Signs Date Time Temp Pulse Resp B/P (MAP) Pulse Ox O2 Delivery O2 Flow Rate FiO2 09/22/17 07:49 98.5 75 18 121/80 (94) 98 09/22/17 06:34 15 09/22/17 04:12 98.4 68 16 97/61 (73) 98 09/22/17 00:05 98.4 63 16 102/58 (73) 100 09/21/17 23:39 09/21/17 23:30 98/55 (69) 09/21/17 23:10 56 16 108/63 (78) 98 Room Air 09/21/17 22:41 64 16 95/54 (68) 98 Room Air 09/21/17 22:05 59 16 91/51 (64) 96 Room Air 09/21/17 21:09 54 14 81/50 (60) 97 Room Air 09/21/17 20:02 67 18 100/57 (71) 100 Room Air 09/21/17 19:45 98.8 55 14 85/42 (56) 97 I/O 09/21/17 09/21/17 09/21/17 09/22/17 09/22/17 09/22/17 07:00 15:00 23:00 07:00 15:00 23:00 Intake Total 1000 ml 850 ml Balance 1000 ml 850 ml Intake IV Total 1000 ml 850 ml Result Diagram: 09/22/17 0657 09/22/17 0657 Imaging Last Impressions Maxillofacial CT 09/21/17 0000 Signed Impressions: Service Date/Time: Thursday, September 21, 2017 22:09 - CONCLUSION: 1. Findings consistent with left facial cellulitis abutting the left mandible without drainable abscess. There is a dental minor involving the left premolar. Regional submental and level 2/3 lymphadenopathy are likely reactive/ infectious in etiology. 2. 5 mm enhancing lesion in the inferior right parotid gland likely reflects a parotid lymph node. Consider ultrasound examination on outpatient basis following resolution of patient's symptoms. 1. Gómez Mota MD Objective Remarks GENERAL: Well-nourished, well-developed middle aged female patient in NAD. SKIN: Warm and dry. Left face with diffuse erythema, mild edema, and warmth from buccal region extending down into the neck; diffusely tender to palpation. HEENT: Normocephalic. Atraumatic. Pupils equal and round. Mucous membranes pink and moist. NECK: Supple. Trachea midline. +lymphadenopathy of left submandibular and anterior cervical region. CARDIOVASCULAR: Regular rate and rhythm. No murmur appreciated. RESPIRATORY: No accessory muscle use. Clear to auscultation. Breath sounds equal bilaterally. GASTROINTESTINAL: Abdomen soft, non-tender, nondistended. Normoactive bowel sounds x4. MUSCULOSKELETAL: No obvious deformities. Extremities without clubbing, cyanosis , or edema. NEUROLOGICAL: Awake and alert. No obvious cranial nerve deficits. Motor grossly within normal limits. Moving all extremities spontaneously. Normal speech. PSYCHIATRIC: Appropriate mood and affect; insight and judgment normal. Procedures None. Medications and IVs Current Medications Medications (Trade) Dose Ordered Sig/Yonatan Route Start Time Stop Time Status Last Admin Clindamycin/ Sodium Chloride 50 ml @ 100 mls/hr Q8H IV 09/22/17 06:00 09/22/17 05:34 Sodium Chloride 1,000 ml @ 150 mls/hr Q6H40M IV 09/21/17 23:23 09/22/17 05:36 (NS Flush) 2 ml UNSCH PRN IV FLUSH 09/21/17 23:30 (NS Flush) 2 ml BID IV FLUSH 09/22/17 09:00 09/22/17 08:20 (Reglan Inj) 5 mg Q6H PRN IV PUSH 09/21/17 23:30 (Tylenol) 650 mg Q6H PRN PO 09/21/17 23:30 ([place] 5-325 Mg) 1 tab Q4H PRN PO 09/21/17 23:30 ([place] 10-325 Mg) 1 tab Q4H PRN PO 09/21/17 23:30 09/22/17 05:34 (Milk Of Magnesia Liq) 30 ml Q12H PRN PO 09/21/17 23:30 (Senokot) 17.2 mg Q12H PRN PO 09/21/17 23:30 (Dulcolax Supp) 10 mg DAILY PRN RECTAL 09/21/17 23:30 (Lactulose Liq) 30 ml DAILY PRN PO 09/21/17 23:30 (Toradol Inj) 15 mg Q6HR IV PUSH 09/22/17 12:00 09/25/17 11:59 (Elissa-Colace) 2 tab BID PO 09/22/17 09:00 A/P Problem List: (1) Hypotension ICD Code: I95.9 - Hypotension, unspecified Status: Acute (2) Dental infection ICD Code: K04.7 - Periapical abscess without sinus Assessment and Plan 52-year-old female with a PMH of Anxiety, Depression and Right Shoulder Pain s/ p Rotator Cuff Repair who presented to the ER w/ complaints of left-sided facial pain and swelling. States she was seen by her PCP yesterday for similar symptoms and started on Clinda 300mg q6h, has taken 2 doses so far. Hypotension: secondary to medications, took 3 doses of Zanaflex 4mg and 4 doses of Hydrocodone 10mg for dental/facial pain today, BP on arrival 80's systolic -s/p 2L IVF bolus w/ some improvement, however persistent episodes of hypotension while in ER, asked to admit for Observation. -Pt asymptomatic. -Monitor on telemetry -Continue IVF -Limit narcotics, norco prn pain -BP much improved, currently 121/80 Facial Cellulitis: left-sided facial swelling/pain, recently started on Clinda by PCP, took 2 doses. Afebrile, no leukocytosis. -CT Maxillofacial w/ left facial cellulitis, no abscess, images reviewed by me. -Continue with IV Clinda, with plan to d/c home w/ Clinda PO. 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 Likely discharge tomorrow on po antibiotics if symptoms continue to improve. Problem Qualifiers (1) Hypotension: Qualified Codes: I95.9 - Hypotension, unspecified Maricruz Rasheed PA-C September 22, 2017 10:31
--- NOTE | 2017-09-22 13:37 | PD.CONS ---
History of Present Illness Service Infectious Disease Consult Requested By Dr Rachel Valentin Reason for Consult Evaluate patient with facial cellulitis, question pneumonia Primary Care Physician Reilly Valentin MD Diagnoses: History of Present Illness Patient seen and examined. Records reviewed. Patient is a 53-year-old female, presented to the hospital complaining of left- sided facial pain and swelling. She apparently had a tooth filling fall off one day [employer]. The following day, she woke up with swelling on the left side of her face in the jaw area. She went to see her primary care physician who gave her a shot of medication, and she was given a prescription for clindamycin. She has taken 3 doses of oral clindamycin. Looks like patient has had previous dental extraction with plans of putting in a partial denture. Apparently there was a tooth left and one at the area where the teeth was extracted. She is complaining of pain in her gums, as well as swelling. There is been no fever or chills. She presented to the hospital and initially had hypotension. She got some IV fluids, but her hypertension did not improve immediately. She was however asymptomatic. Currently her hemodynamics are better. She underwent CT of the maxillofacial area and there was evidence of facial cellulitis, with no drainable abscess. Patient has been on IV clindamycin, and she has noted improvement in the swelling on her left face. She denies any other complaints, as far as GI or any urinary complaints. Infectious disease consultation has been requested to evaluate the patient. Review of Systems Constitutional: DENIES: Fever, Chills, Night Sweats Eyes: DENIES: Eye pain Ears, nose, mouth, throat: COMPLAINS OF: Oral lesions, Toothache, DENIES: Nasal discharge, Throat pain, Ear Pain, Running Nose, Odynophagia Respiratory: DENIES: Cough, Shortness of breath Cardiovascular: DENIES: Chest pain, Palpitations, Dyspnea on Exertion, Lower Extremity Edema Gastrointestinal: DENIES: Abdominal pain, Constipation, Diarrhea, Nausea, Vomiting, Difficulty Swallowing Genitourinary: DENIES: Urinary frequency, Dysuria Musculoskeletal: DENIES: Joint pain, Joint Swelling Integumentary: DENIES: Rash, Nail changes Hematologic/lymphatic: DENIES: Lymphadenopathy Neurologic: DENIES: Headache, Localized weakness Psychiatric: DENIES: Hallucinations Past Family Social History Allergies: Coded Allergies: Sulfa (Sulfonamide Antibiotics) (Unverified Allergy, Severe, SOB, TOUNGUE SWELLS, HIVES, 09/21/17) codeine (Unverified Allergy, Severe, Nausea/Vomiting, 09/21/17) Past Medical History Anxiety Depression Right Shoulder Pain s/p Rotator Cuff Repair Fe deficiency anemia Menopausal bleeding Colonic polyps removed 9 months ago Past Surgical History Tubal Ligation Breast Implants Right Shoulder Surgery Previous colonoscopy and polypectomy Active Ordered Medications Current Medications Medications (Trade) Dose Ordered Sig/Yonatan Route Start Time Stop Time Status Last Admin Clindamycin/ Sodium Chloride 50 ml @ 100 mls/hr Q8H IV 09/22/17 06:00 09/22/17 05:34 Sodium Chloride 1,000 ml @ 150 mls/hr Q6H40M IV 09/21/17 23:23 09/22/17 05:36 (NS Flush) 2 ml UNSCH PRN IV FLUSH 09/21/17 23:30 (NS Flush) 2 ml BID IV FLUSH 09/22/17 09:00 09/22/17 08:20 (Reglan Inj) 5 mg Q6H PRN IV PUSH 09/21/17 23:30 (Tylenol) 650 mg Q6H PRN PO 09/21/17 23:30 ([place] 5-325 Mg) 1 tab Q4H PRN PO 09/21/17 23:30 ([place] 10-325 Mg) 1 tab Q4H PRN PO 09/21/17 23:30 09/22/17 05:34 (Milk Of Magnesia Liq) 30 ml Q12H PRN PO 09/21/17 23:30 (Senokot) 17.2 mg Q12H PRN PO 09/21/17 23:30 (Dulcolax Supp) 10 mg DAILY PRN RECTAL 09/21/17 23:30 (Lactulose Liq) 30 ml DAILY PRN PO 09/21/17 23:30 (Toradol Inj) 15 mg Q6HR IV PUSH 09/22/17 12:00 09/25/17 11:59 (Elissa-Colace) 2 tab BID PO 09/22/17 09:00 Family History Noncontributory Social History No smoking Denies alcohol abuse Denies illicit drug Physical Exam Vital Signs Vital Signs Date Time Temp Pulse Resp B/P (MAP) Pulse Ox O2 Delivery O2 Flow Rate FiO2 09/22/17 12:30 98.4 61 18 121/76 (91) 100 09/22/17 10:42 22 09/22/17 07:49 98.5 75 18 121/80 (94) 98 09/22/17 06:34 15 09/22/17 04:12 98.4 68 16 97/61 (73) 98 09/22/17 00:05 98.4 63 16 102/58 (73) 100 09/21/17 23:39 09/21/17 23:30 98/55 (69) 09/21/17 23:10 56 16 108/63 (78) 98 Room Air 09/21/17 22:41 64 16 95/54 (68) 98 Room Air 09/21/17 22:05 59 16 91/51 (64) 96 Room Air 09/21/17 21:09 54 14 81/50 (60) 97 Room Air 09/21/17 20:02 67 18 100/57 (71) 100 Room Air 09/21/17 19:45 98.8 55 14 85/42 (56) 97 Physical Exam GENERAL: Patient is a well-nourished, well-developed female, awake and alert, not in respiratory distress. SKIN: Warm and dry. No generalized rash, no ecchymoses and no evidence of embolic lesions. HEAD: Atraumatic. Normocephalic. No temporal wasting, or tenderness. EYES: [place] conjunctiva. No petechia or hemorrhage. Pupils equal, round and reactive to light. Extraocular movements full and intact. No scleral icterus. No injection or drainage. EARS, NOSE AND THROAT: Nose without bleeding or purulent nasal discharge. No sinus tenderness. Mucous membranes pink and moist. Swelling of gums L lower mandible with carious teeth. No oral thrush. Swelling, tenderness L submandibular area, NECK: Trachea midline. Supple and not tender, no meningeal signs. Tender LN L submandibular area CARDIOVASCULAR: Regular rate and rhythm. No murmurs, rubs or gallops heard RESPIRATORY: Clear to auscultation. Breath sounds equal bilaterally. No rales , wheezing or rhonchi ABDOMEN: Soft, non-tender, nondistended. Bowel sounds present and normoactive. No guarding. No rebound. No organomegaly. EXTREMITIES: No clubbing, cyanosis, or edema.No joint effusion, has good ROM. No calf tenderness. Well perfused and warm. NEUROLOGICAL: Awake and alert. Cranial nerves grossly intact. Motor grossly within normal limits. PSYCHIATRIC: Normal affect, calm and cooperative. LINE: No evidence of infection Laboratory Laboratory Tests Test 09/21/17 20:25 09/21/17 22:15 09/22/17 06:57 White Blood Count 7.1 6.3 Red Blood Count 3.88 3.55 Hemoglobin 10.9 10.2 Hematocrit 32.6 30.4 Mean Corpuscular Volume 84.2 85.6 Mean Corpuscular Hemoglobin 28.1 28.7 Mean Corpuscular Hemoglobin Concent 33.4 33.6 Red Cell Distribution Width 13.1 13.0 Platelet Count 277 218 Mean Platelet Volume 7.5 7.6 Neutrophils (%) (Auto) 64.2 57.3 Lymphocytes (%) (Auto) 25.5 30.2 Monocytes (%) (Auto) 7.1 9.0 Eosinophils (%) (Auto) 2.5 3.1 Basophils (%) (Auto) 0.7 0.4 Neutrophils # (Auto) 4.5 3.6 Lymphocytes # (Auto) 1.8 1.9 Monocytes # (Auto) 0.5 0.6 Eosinophils # (Auto) 0.2 0.2 Basophils # (Auto) 0.0 0.0 CBC Comment DIFF FINAL DIFF FINAL Differential Comment Blood Urea Nitrogen 18 13 Creatinine 0.93 0.89 Random Glucose 106 103 Total Protein 6.8 6.2 Albumin 2.9 2.7 Calcium Level 8.3 8.3 Magnesium Level 2.0 Alkaline Phosphatase 74 74 Aspartate Amino Transf (AST/SGOT) 12 12 Alanine Aminotransferase (ALT/SGPT) 16 14 Total Bilirubin 0.9 0.4 Sodium Level 140 143 Potassium Level 4.5 4.2 Chloride Level 108 111 Carbon Dioxide Level 25.2 23.8 Anion Gap 7 8 Estimat Glomerular Filtration Rate 63 67 Lactic Acid Level 1.0 C-Reactive Protein 6.30 Thyroid Stimulating Hormone 3rd Gen 2.430 Ethyl Alcohol Level LESS THAN 3 Urine Color LIGHT-YELLOW Urine Turbidity HAZY Urine pH 7.0 Urine Specific [place] 1.007 Urine Protein NEG Urine Glucose (UA) NEG Urine Ketones NEG Urine Occult Blood SMALL Urine Nitrite NEG Urine Bilirubin NEG Urine Urobilinogen LESS THAN 2.0 Urine Leukocyte Esterase SMALL Urine RBC LESS THAN 1 Urine WBC 5 Urine Squamous Epithelial Cells 6 Urine Transitional Epithelial Cells <1 Urine Uric Acid Crystals MOD Urine Amorphous Sediment RARE Urine Bacteria OCC Urine Mucus FEW Microscopic Urinalysis Comment CULT NOT INDICATED Urine Opiates Screen NEG Urine Barbiturates Screen NEG Urine Amphetamines Screen POS Urine Benzodiazepines Screen POS Urine Cocaine Screen NEG Urine Cannabinoids Screen NEG Date/Time Source Procedure Growth Status 09/21/17 20:25 Blood Peripheral Aerobic Blood Culture - Preliminary NO GROWTH IN 1 DAY Resulted 09/21/17 20:25 Blood Peripheral Anaerobic Blood Culture - Preliminary NO GROWTH IN 1 DAY Resulted Result Diagram: 09/22/17 0657 09/22/17 0657 Imaging RADIOLOGY STUDIES/FILMS REVIEWED Maxillofacial CT 09/21/17 0000 Signed Impressions: Service Date/Time: Thursday, September 21, 2017 22:09 - CONCLUSION: 1. Findings consistent with left facial cellulitis abutting the left mandible without drainable abscess. There is a dental minor involving the left premolar. Regional submental and level 2/3 lymphadenopathy are likely reactive/ infectious in etiology. 2. 5 mm enhancing lesion in the inferior right parotid gland likely reflects a parotid lymph node. Consider ultrasound examination on outpatient basis following resolution of patient's symptoms. 1. Gómez Mota MD Assessment and Plan Assessment and Plan IMPRESSION Facial cellulitis due to infected tooth L submandibular area, improving RECOMMENDATION\ OK to switch to oral Clinda and give 10 more days on D/C Needs follow-up with dentist to do definitive treatment - tooth extraction Thank you for this consultation Discussed Condition With Explained plan to the patient Chary Cortés MD September 22, 2017 13:37
[2017-09-22] MEDS: KETOROLAC TROMETHAMINE 30 MG/ML (IVP) VIAL IV PUSH SCH ×2 (13:58→17:02)
[2017-09-23] VITALS (9 sets, daily range): BP systolic 128–170; BP diastolic 72–99; PULSE 38–74; RESP 16–20; TEMP 97.7–99.8; O2SAT 97–99
--- NOTE | 2017-09-23 00:20 | HHI.PR ---
Addendum to Inpatient Note Additional Information Ms. Jacobs complains of being anxious and cannot sleep. She takes 1mg of Xanax QHS. Her HR is in the 40s and BP is slightly elevated. She is tolerating P.O fluid well. We will d/c her IV fluid, put her on telemetry for bradycardia and give her 0.5mg Xanax. She denies any chest pain, SOB, fever, chills. Checked her heart rate manually - it is about 44 beats per min. D/W nurse. Liberty Valentin DO September 23, 2017 00:20
[2017-09-23] MEDS ORDERED: ALPRAZolam 0.5 MG TAB PO ONE ×2 (00:30→23:30)
[2017-09-23] MEDS: KETOROLAC TROMETHAMINE 30 MG/ML (IVP) VIAL IV PUSH SCH ×5 (06:00→23:01)
[2017-09-23] MEDS: CLINDAMYCIN 900 MG/NS PREMIX 50 ML IV SCH ×3 (06:01→23:00)
[2017-09-23] MEDS: SODIUM CHLORIDE 0.9% FLUSH 10 ML FLUSH IV FLUSH SCH ×2 (08:54→23:00)
[2017-09-23] MEDS: DOCUSATE SODIUM 50 MG/SENNA 8.6 MG TAB PO SCH ×2 (08:56→21:00)
[2017-09-23] MEDS: ACETAMINOPHEN/HYDROcodone 325 MG/10 MG TAB PO PRN (09:30)
--- NOTE | 2017-09-23 12:03 | HHI.PR ---
Subjective History of Present Illness Patient getting IV Clindamycin and feeling better jaw swelling getting better no acute issue. Review of Systems Constitutional Constitutional: Fatigue Vitals/Results Vital Signs Vital Signs Date Time Temp Pulse Resp B/P (MAP) Pulse Ox O2 Delivery O2 Flow Rate FiO2 09/23/17 11:24 98.0 66 18 131/81 (98) 99 09/23/17 08:07 98.5 63 16 128/88 (101) 99 09/23/17 05:58 56 16 165/99 (121) 97 09/23/17 02:54 97.7 53 16 170/97 (121) 99 09/23/17 00:56 38 09/22/17 23:51 97.5 40 18 169/94 (119) 99 09/22/17 23:26 97.4 37 16 164/92 (116) 93 09/22/17 19:54 98.1 58 16 125/76 (92) 99 09/22/17 18:10 18 09/22/17 16:47 97.8 55 18 128/78 (95) 98 09/22/17 12:30 98.4 61 18 121/76 (91) 100 CBC/BMP: 09/22/17 0657 09/22/17 0657 Physical Exam General General Appearance: Well Developed, Well Nourished, No Acute Distress, Comfortable Eyes Eye Exam: Pupils Equal, Pupils Reactive, Sclera White, Extraocular Movement Intact Throat Throat Exam: Oral Mucosa [place] & Moist, Oral Pharynx Normal Throat Remarks mild swelling left lower jaw Neck Neck Exam: Neck Supple, Trachea Midline Pulmonary Resp Exam: Clear Bilaterally, Breath Sounds Equal, No Distress Cardiology CV Exam: Regular, Normal Sinus Rhythm Gastrointestinal/Abdomen GI Exam: Soft, Non-Tender, Bowel Sounds Present Musculoskeletal MS Exam: Joints Intact Integumentary Skin Exam: Clear, Warm, Dry, Intact Extremeties Extremities Exam: No Edema Neurologic Neuro Exam: Alert, Awake, Oriented, Speech Clear, No Focal Deficits Psychiatric Psych Exam: Appropriate Responses Assessment/Plan Problem List: (1) Hypotension ICD Codes: I95.9 - Hypotension, unspecified Status: Acute (2) Dental infection ICD Codes: K04.7 - Periapical abscess without sinus Assessment/Plan Assessment and Plan A/P: 1. Hypotension: secondary to medications, took 3 doses of Zanaflex 4mg and 4 doses of Hydrocodone 10mg for dental/facial pain today, BP on arrival 80's systolic, s/p 2L IVF w/ some improvement, however persistent episodes of hypotension while in ER, asked to admit for Observation. Pt asymptomatic. Telemetry, IVF, hold narcotics at this time. better 2. Dental Infection: left-sided facial swelling/pain, recently started on Clinda by PCP, took [address] Maxillofacial w/ left facial cellulitis, no abscess, images reviewed by me. Afebrile, no leukocytosis. S/p Zosyn in ER, continue w/ IV Clinda, d/c home w/ Clinda PO. 3. DVT Prophylaxis: SCD/Teds 4. Social work for DC planning as needed. Discussed Condition with: Patient Problem Qualifiers (1) Hypotension: Qualified Codes: I95.9 - Hypotension, unspecified Reilly Valentin MD September 23, 2017 12:03
[2017-09-24 00:45] VITALS: BP 163/99; PULSE 54; RESP 16; TEMP 98.3; O2SAT 99
[2017-09-24 04:36] VITALS: BP 135/82; PULSE 51; RESP 16; TEMP 98; O2SAT 97
[2017-09-24] MEDS: KETOROLAC TROMETHAMINE 30 MG/ML (IVP) VIAL IV PUSH SCH ×3 (05:50→17:39)
[2017-09-24] MEDS: CLINDAMYCIN 900 MG/NS PREMIX 50 ML IV SCH ×2 (05:50→13:48)
[2017-09-24 07:19] VITALS: PULSE 44
[2017-09-24 08:25] VITALS: BP 128/87; PULSE 51; RESP 18; TEMP 97.7; O2SAT 99
[2017-09-24] MEDS: SODIUM CHLORIDE 0.9% FLUSH 10 ML FLUSH IV FLUSH SCH (10:00)
[2017-09-24] MEDS: DOCUSATE SODIUM 50 MG/SENNA 8.6 MG TAB PO SCH (10:00)
--- NOTE | 2017-09-24 11:09 | HHI.PR ---
Subjective History of Present Illness Patient getting IV Clindamycin and feeling better jaw swelling getting better no acute issue. ok to discharge home today. Vitals/Results Vital Signs Vital Signs Date Time Temp Pulse Resp B/P (MAP) Pulse Ox O2 Delivery O2 Flow Rate FiO2 09/24/17 08:25 97.7 51 18 128/87 (101) 99 09/24/17 07:19 44 09/24/17 04:36 98.0 51 16 135/82 (99) 97 09/24/17 00:45 98.3 54 16 163/99 (120) 99 09/23/17 23:55 40 09/23/17 20:45 98.7 64 16 151/95 (113) 99 09/23/17 20:30 66 09/23/17 14:56 99.8 74 20 143/72 (95) 98 09/23/17 11:24 98.0 66 18 131/81 (98) 99 CBC/BMP: 09/22/17 0657 09/22/17 0657 Physical Exam General General Appearance: Well Developed, Well Nourished, No Acute Distress, Comfortable Eyes Eye Exam: Pupils Equal, Pupils Reactive, Sclera White, Extraocular Movement Intact Throat Throat Exam: Oral Mucosa [place] & Moist, Oral Pharynx Normal Neck Neck Exam: Neck Supple, Trachea Midline Pulmonary Resp Exam: Clear Bilaterally, Breath Sounds Equal, No Distress Cardiology CV Exam: Regular, Normal Sinus Rhythm Gastrointestinal/Abdomen GI Exam: Soft, Non-Tender, Bowel Sounds Present Musculoskeletal MS Exam: Joints Intact Integumentary Skin Exam: Clear, Warm, Dry, Intact Extremeties Extremities Exam: No Edema Neurologic Neuro Exam: Alert, Awake, Oriented, Speech Clear, No Focal Deficits Psychiatric Psych Exam: Appropriate Responses Assessment/Plan Problem List: (1) Hypotension ICD Codes: I95.9 - Hypotension, unspecified Status: Acute (2) Dental infection ICD Codes: K04.7 - Periapical abscess without sinus Assessment/Plan Assessment and Plan A/P: 1. Hypotension: secondary to medications, took 3 doses of Zanaflex 4mg and 4 doses of Hydrocodone 10mg for dental/facial pain today, BP on arrival 80's systolic, s/p 2L IVF w/ some improvement, however persistent episodes of hypotension while in ER, asked to admit for Observation. Pt asymptomatic. Telemetry, IVF, hold narcotics at this time. resolved. 2. Dental Infection: left-sided facial swelling/pain, recently on Clinda by PCP, took [address] Maxillofacial w/ left facial cellulitis, no abscess, images reviewed by me. Afebrile, no leukocytosis. S/p Zosyn in ER, continue w / IV Clinda, d/c home w/ Clinda PO. ok to discharge per ID. 3. DVT Prophylaxis: SCD/Teds ok to discharge home today f/u with PCP 1 WEEK. Discussed Condition with: Patient Problem Qualifiers (1) Hypotension: Qualified Codes: I95.9 - Hypotension, unspecified Reilly Valentin MD September 24, 2017 11:09
[2017-09-24 12:55] VITALS: BP 155/103; PULSE 68; RESP 18; TEMP 99.1; O2SAT 99
[2017-09-24 16:00] VITALS: BP 97/63; PULSE 62; RESP 16; TEMP 98.9; O2SAT 98
[2017-09-24] MEDS ORDERED: CLIN300C5 PO (18:54)
--- NOTE | 2017-09-24 19:29 | MD ---
cc: Reilly Valentin MD, Ejaz MD DATE OF DISCHARGE: We are going to discharge the patient home. CONDITION AT THE TIME OF DISCHARGE: Satisfactory. ACTIVITY: As tolerated. DIET: Cardiac diet. ALLERGIES: SULFA DRUGS AND CODEINE. DISCHARGE MEDICATIONS: 1. Clindamycin 300 mg p.o. q. 6 hrs 2. Dextroamphetamine 5 mg p.o. b.i.d. 3. Neurontin 300 mg p.o. t.i.d. 4. Hydrocodone/acetaminophen one p.o. q. 6 hours 5. Imitrex 25 mg p.o. daily p.r.n. headache, 6. Zanaflex 4 mg p.o. at bedtime p.r.n. muscle spasm. The patient was to followup with PCP. ADMISSION DIAGNOSIS: 1. Hypotension which was secondary to Zanaflex and hydrocodone, which is resolved. 2. Dental infection leading to left-sided facial swelling. The patient was seen in my office, was given clindamycin and took 2 doses, but still did not feel better. The patient had a CT maxillofacial that showed left-sided cellulitis. The patient was given Zosyn in the ER and also started on clindamycin IV. The patient was seen by infectious disease doctor. Okay to discharge per infectious disease doctor on clindamycin 300 mg p.o. 4 times a day for 10 days. 3. Deep venous thrombosis prophylaxis SCD. 4/ Other comorbidities include anxiety, depression, right shoulder pain, status post rotator cuff repair HOSPITAL COURSE: This is a 52-year-old female admitted with hypertension and left sided facial cellulitis and patient had poor oral dental hygiene and dental decay. The patient got gingivitis. The patient had no abscess on the maxillofacial CT. The patient remained stable. The patient's maxillofacial CT showed finding consistent with a left facial cellulitis abducting the left mandible without drainable abscess. There are dental caries involving the left molar region submental at level 2 or 3 lymphadenopathy, unlikely reactive infectious in etiology, 2.5 mm enhancing lesion in the inferior right parotid gland, likely reflects a parotid lymph node. Consider ultrasound examination on outpatient basis following resolution of the patient's symptoms. The patient remained stable. The patient's blood culture grew Staphylococcus coagulase negative. The patient okay to discharge per infectious disease doctor. The patient has a WBC count normal at 6.3 and 7.1. The patient had anemia with a hemoglobin of 10.2. The patient to had a chloride of 111, which is high. GFR was 67, low. Creatinine was 0.89, BUN 13. AST, ALT were normal. Albumin was 2.7, total protein 6.2. The patient's urine tox screen positive for amphetamine and benzodiazepine. Patient's urine shows small occult blood and small leukocyte esterase, moderate uric acid crystals, occasional bacteria. The patient discharged in a satisfactory condition. Further detail in the medical record. Reilly Valentin MD EA/ , 07:00 PM , 07:28 PM
== END 2017-09-24 19:44 | disposition home or self-care (01) ==
LOC: NEPE 19:29 → NEDA 22:48 → NEPGCP 09-22
PROVIDERS: ADMIT Family Medicine; ATTEND Family Medicine
DX: I95.2 Hypotension due to drugs (principal); K02.9 Dental caries, unspecified; B95.7 Other staphylococcus as the cause of diseases classified elsewhere; K05.10 Chronic gingivitis, plaque induced; K04.7 Periapical abscess without sinus; L03.211 Cellulitis of face; E03.9 Hypothyroidism, unspecified; I10 Essential (primary) hypertension; D64.9 Anemia, unspecified; F41.9 Anxiety disorder, unspecified; Z86.010 Personal history of colon polyps; Z87.442 Personal history of urinary calculi; Z98.82 Breast implant status
CPT/HCPCS: 70487; 76937; 80053; 80307; 81001; 82948; 83605; 83735; 84443; 85025; 86140; 87040; 87077; 87149; 87186; 87205; 93005; 96361; 96365; 96374; 96375; 96376; 99285; G0378; J1885; J2543; J7030; Q9967